=== PATIENT | female | born 1955 | race American Indian/Alaskan Native ===

== ENCOUNTER 2018-05-25 16:07 | Emergency (ER) | payer BC, OTHER ==
[2018-05-25 16:30] VITALS: BP 158/76
[2018-05-25 17:12] LABS: ANION GAP 13.5; CHLORIDE,CL 107 mmol/L (101-111); SODIUM,NA 142 mmol/L (135-145)
[2018-05-25] MEDS ORDERED: Ketorolac 30 MG/ML SDV IM ONE (17:47)
--- NOTE | 2018-05-25 17:54 | EDM.PDOC ---
ED HPI GENERAL MEDICAL PROBLEM - General Chief Complaint: Back Pain or Injury Stated Complaint: LEFT LOWER BACK HAS PAIN [id number] Time Seen by Provider: 05/25/18 17:30 Source of Information: Reports: Patient History Limitations: Reports: No Limitations - History of Present Illness INITIAL COMMENTS - FREE TEXT/NARRATIVE: This 62 yo female patient reports to the ED with a 4 day history of left lower back pain. The patient reports she has been having difficulties ambulating. 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 The patient reports she has been taking ibuprofen with no symptom relief. 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 Left Lower Back Pain Score (Numeric/FACES): 9 - Related Data Allergies Allergy/AdvReac Type Severity Reaction Status Date / Time codeine Allergy Stomach Verified 05/25/18 16:30 Upset Home Meds: Home Meds Levothyroxine 200 mcg PO ACBREAKFAST 05/25/18 [History] Past Medical History Endocrine/Metabolic History: Reports: Hypothyroidism - Past Surgical History GI Surgical History: Reports: Cholecystectomy Female Surgical History: Reports: Hysterectomy Social & Family History - Tobacco Use Smoking Status *Q: Never Smoker Second Hand Smoke Exposure: No - Recreational Drug Use Recreational Drug Use: No ED ROS GENERAL - Review of Systems Review Of Systems: ROS reveals no pertinent complaints other than HPI. ED EXAM,LOWER BACK PAIN/INJURY - Physical Exam Exam: See Below Exam Limited By: No Limitations General Appearance: Alert, WD/WN, Moderate Distress Eye Exam: Bilateral Eye: EOMI, Normal Inspection, PERRL Ears: Normal External Exam, Normal Canal, Hearing Grossly Normal, Normal TMs Nose: Normal Inspection, Normal Mucosa, No Blood Throat/Mouth: Normal Inspection, Normal Lips, Normal Teeth, Normal Gums, Normal Oropharynx, Normal Voice, No Airway Compromise Head: Atraumatic, Normocephalic Neck: Normal Inspection, Supple, Non-Tender, Full Range of Motion Respiratory/Chest: No Respiratory Distress, Lungs Clear, Normal Breath Sounds, No Accessory Muscle Use, Chest Non-Tender Cardiovascular: Normal Peripheral Pulses, Regular Rate, Rhythm, No Edema, No Gallop, No JVD, No Murmur, No Rub GI/Abdominal: Normal Bowel Sounds, Soft, Non-Tender, No Organomegaly, No Distention, No Abnormal Bruit, No Mass (Female) Exam: Deferred Rectal (Female) Exam: Deferred Back Exam: Paraspinal Tenderness (left lower back pain) Extremities: Normal Inspection, Normal Range of Motion, Non-Tender, No Pedal Edema, Normal Capillary Refill Neurological: Alert, Normal Mood/Affect, Normal Dorsiflexion, CN II-XII Intact, Normal Plantar Flexion, Normal Gait, Normal Reflexes, No Motor/Sensory Deficits , Oriented x 3 Psychiatric: Normal Affect, Normal Mood Skin Exam: Warm, Dry, Intact, Normal Color, No Rash Lymphatic: No Adenopathy Course - Vital Signs Last Recorded V/S: Last Vital Signs Temp 37.1 C 05/25/18 16:27 Pulse 103 H 05/25/18 16:27 Resp 18 05/25/18 16:27 BP 158/76 H 05/25/18 16:27 Pulse Ox 97 05/25/18 16:27 - Orders/Labs/Meds Orders: Active Orders 24 hr Category Date Time Status CULTURE URINE [RM] Urgent Lab 05/25/18 16:36 Received Labs: Laboratory Tests 05/25/18 05/25/18 05/25/18 Range/Units 16:36 16:45 16:45 WBC 12.3 H (5.0-10.0) 10^3/uL RBC 4.52 (4.2-5.4) 10^6/uL Hgb 13.3 (12.0-16.0) g/dL Hct 39.9 (37.0-47.0) % MCV 88.3 (80-100) fL MCH 29.4 (27.0-34.0) pg MCHC 33.3 (33.0-35.0) g/dL Plt Count 251 (150-450) 10^3/uL Neut % (Auto) 62.1 (42.2-75.2) % Lymph % (Auto) 24.5 (20.5-50.1) % Becker % (Auto) 10.4 H (2-8) % Eos % (Auto) 2.8 (1.0-3.0) % Baso % (Auto) 0.2 (0.0-1.0) % Sodium 142 (135-145) mmol/L Potassium 3.5 L (3.6-5.0) mmol/L Chloride 107 (101-111) mmol/L Carbon Dioxide 25.0 (21.0-31.0) mmol/L Anion Gap 13.5 BUN 15 (7-18) mg/dL Creatinine 0.8 (0.6-1.3) mg/dL Est Cr Clr Drug Dosing 61.35 mL/min Estimated GFR (MDRD) > 60 BUN/Creatinine Ratio 18.75 Glucose 101 (74-105) mg/dL Calcium 8.8 (8.4-10.2) mg/dl Total Bilirubin 0.7 (0.2-1.0) mg/dL AST 41 (10-42) IU/L ALT 42 (10-60) IU/L Alkaline Phosphatase 88 (42-121) IU/L Total Protein 7.8 (6.7-8.2) g/dl Albumin 3.7 (3.2-5.5) g/dl Globulin 4.1 Albumin/Globulin Ratio 0.90 Urine Color Yellow (YELLOW) Urine Appearance Cloudy (CLEAR) Urine pH 5.5 (5.0-9.0) Ur Specific [place] >= 1.030 (1.005-1.030) Urine Protein 30 H (NEGATIVE) Urine Glucose (UA) Negative (NEGATIVE) Urine Ketones Trace H (NEGATIVE) Urine Occult Blood Small H (NEGATIVE) Urine Nitrite Positive H (NEGATIVE) Urine Bilirubin Negative (NEGATIVE) Urine Urobilinogen 1.0 (0.2-1.0) mg/dL Ur Leukocyte Esterase Small H (NEGATIVE) Urine RBC 5-10 H /HPF Urine WBC >100 H (0-5/HPF) /HPF Ur Epithelial Cells Moderate H /HPF Amorphous Sediment Few (0/HPF) /HPF Urine Bacteria Moderate H (0-FEW/HPF) /HPF Urine Mucus Rare /LPF Urinalysis Comment Meds: Medications Discontinued Medications Generic Name Dose Route Start Last Admin Trade Name Freq PRN Reason Stop Dose Admin Ketorolac Tromethamine 30 mg 05/25/18 17:47 Toradol IM 05/25/18 17:48 ONETIME ONE Departure - Departure Time of Disposition: 17:49 Disposition: Home, Self-Care 01 Condition: Fair Clinical Impression: UTI (urinary tract infection) Qualifiers: Urinary tract infection type: site unspecified Hematuria presence: with hematuria Qualified Code(s): N39.0 - Urinary tract infection, site not specified Low back strain Qualifiers: Encounter type: initial encounter Qualified Code(s): S39.012A - Strain of muscle, fascia and tendon of lower back, initial encounter - Discharge Information *PRESCRIPTION DRUG MONITORING PROGRAM REVIEWED*: Not Applicable *COPY OF PRESCRIPTION DRUG MONITORING REPORT IN PATIENT HONORIO: Not Applicable Instructions: Urinary Tract Infection, Adult, [id number], Back Pain, Adult, [id number] Forms: ED Department Discharge Care Plan Goals: The patient was advised of the examination and lab results during the visit. The patient was given an injection of Toradol while in the ED. The patient was discharged with a script for 1) Toradol (10 mg) #20 to take 1 by mouth every 6 hours, 2) Flexeril (10 mg) #20 to take 1 by mouth at bedtime as needed and 3) Keflex (500 mg) to take 1 by mouth 3 times per day for 7 days. The patient should follow-up with her primary care facility. If the patient has any additional symptoms or concerns, the patient was encouraged to either visit her primary care facility or return to the emergency department. - My Orders Last 24 Hours: My Active Orders 05/25/18 16:36 CULTURE URINE [RM] Urgent - Assessment/Plan Last 24 Hours: My Active Orders 05/25/18 16:36 CULTURE URINE [RM] Urgent
== END 2018-05-25 18:10 | disposition home or self-care (01) ==
LOC: DL.ED 16:07
DX: S39.012A Strain of muscle, fascia and tendon of lower back, initial encounter (principal); N39.0 Urinary tract infection, site not specified; E03.9 Hypothyroidism, unspecified; Z88.5 Allergy status to narcotic agent; X58.XXXA Exposure to other specified factors, initial encounter
CPT/HCPCS: 36415; 80053; 81001; 85025; 87086; 96372; 99283; J1885; 87088; 87186

== ENCOUNTER 2018-05-30 13:26 | Emergency (ER) | payer BC, OTHER ==
[2018-05-30 13:46] VITALS: BP 133/67
[2018-05-30] MEDS ORDERED: Phenazopyridine 95 MG Tab PO ONE (14:14)
[2018-05-30] MEDS ORDERED: Promethazine 25 MG Tab PO ONE (14:14)
[2018-05-30] MEDS ORDERED: Acetaminophen/HYDROcodone 325-10 MG Tab PO ONE (14:15)
[2018-05-30] MEDS ORDERED: Ciprofloxacin 500 MG Tab PO ONE (14:16)
[2018-05-30] MEDS ORDERED: Tolterodine 2 MG Tab PO ONE (15:08)
[2018-05-30 15:28] LABS: ANION GAP 13.7; CHLORIDE,CL 103 mmol/L (101-111); SODIUM,NA 138 mmol/L (135-145)
--- NOTE | 2018-05-30 15:38 | EDM.PDOC ---
Scribed by Milly Reed 05/30/18 1531 for Robi Gonzáles MD ED HPI GENERAL MEDICAL PROBLEM - General Chief Complaint: Genitourinary Problem Stated Complaint: CAME BY AMBULACE Time Seen by Provider: 05/30/18 13:10 Source of Information: Reports: Patient, RN, RN Notes Reviewed History Limitations: Reports: No Limitations - History of Present Illness INITIAL COMMENTS - FREE TEXT/NARRATIVE: Patient presents to ER by [facility] with low abdominal pain and pressure and unable to pass her urine for the past 8 hours. Admits to chills. Denies fever. She was seen here on 05/25/18 and treated for UTI which gew out Klebsiella by culture. 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: Other Medication(s) Lower Abdomen Pain Score (Numeric/FACES): 10 - Related Data Allergies Allergy/AdvReac Type Severity Reaction Status Date / Time codeine Allergy Stomach Verified 05/30/18 13:46 Upset Home Meds: Home Meds Levothyroxine 200 mcg PO ACBREAKFAST 05/25/18 [History] Past Medical History Endocrine/Metabolic History: Reports: Hypothyroidism - Past Surgical History GI Surgical History: Reports: Cholecystectomy Female Surgical History: Reports: Hysterectomy Social & Family History - Family History Family Medical History: Noncontributory - Living Situation & Occupation Living situation: Reports: with Family Occupation: Employed ED ROS GENERAL - Review of Systems Review Of Systems: ROS reveals no pertinent complaints other than HPI. ED EXAM, GI/ABD - Physical Exam Exam: See Below Exam Limited By: No Limitations General Appearance: Alert, WD/WN, No Apparent Distress, Other (Uncomfortable appearing) Nose: Normal Inspection Throat/Mouth: Normal Inspection Head: Atraumatic, Normocephalic Respiratory/Chest: No Respiratory Distress, Lungs Clear, Normal Breath Sounds, No Accessory Muscle Use, Chest Non-Tender Cardiovascular: Regular Rate, Rhythm GI/Abdominal Exam: Normal Bowel Sounds, Soft, Tender (tender suprapubic with palpable bladder distention). No: Guarding, Rigid, Rebound (Female) Exam: Deferred Rectal (Female) Exam: Deferred Back Exam: Normal Inspection. No: CVA Tenderness (L), CVA Tenderness (R) Extremities: Normal Inspection Neurological: Alert, Oriented, No Motor/Sensory Deficits Psychiatric: Normal Mood Skin Exam: Warm, Dry, Intact, Normal Color, No Rash Course - Vital Signs Last Recorded V/S: Last Vital Signs Temp 37.3 C 05/30/18 13:43 Pulse 71 05/30/18 13:43 Resp 18 05/30/18 13:43 BP 133/67 05/30/18 13:43 Pulse Ox 100 05/30/18 13:43 - Orders/Labs/Meds Orders: Active Orders 24 hr Category Date Time Status Peace Catheter Insertion [Insert Urinary Catheter] [OM. Care 05/30/18 14:12 Ordered PC] Stat Urinary Catheter Assessment [RC] ASDIRECTED Care 05/30/18 14:12 Active CULTURE URINE [RM] Stat Lab 05/30/18 13:49 Received Labs: Laboratory Tests 05/30/18 05/30/18 05/30/18 Range/Units 13:49 15:00 15:00 WBC 12.1 H (5.0-10.0) 10^3/uL RBC 4.47 (4.2-5.4) 10^6/uL Hgb 12.8 (12.0-16.0) g/dL Hct 38.8 (37.0-47.0) % MCV 86.8 (80-100) fL MCH 28.6 (27.0-34.0) pg MCHC 33.0 (33.0-35.0) g/dL Plt Count 236 (150-450) 10^3/uL Neut % (Auto) 82.0 H (42.2-75.2) % Lymph % (Auto) 10.1 L (20.5-50.1) % Cook % (Auto) 6.4 (2-8) % Eos % (Auto) 1.2 (1.0-3.0) % Baso % (Auto) 0.3 (0.0-1.0) % Sodium 138 (135-145) mmol/L Potassium 3.7 (3.6-5.0) mmol/L Chloride 103 (101-111) mmol/L Carbon Dioxide 25.0 (21.0-31.0) mmol/L Anion Gap 13.7 BUN 9 (7-18) mg/dL Creatinine 0.8 (0.6-1.3) mg/dL Est Cr Clr Drug Dosing 61.35 mL/min Estimated GFR (MDRD) > 60 Glucose 101 (74-105) mg/dL Calcium 9.2 (8.4-10.2) mg/dl Urine Color Light yellow (YELLOW) Urine Appearance Slightly cloudy (CLEAR) Urine pH 6.5 (5.0-9.0) Ur Specific [place] 1.010 (1.005-1.030) Urine Protein Negative (NEGATIVE) Urine Glucose (UA) Negative (NEGATIVE) Urine Ketones Negative (NEGATIVE) Urine Occult Blood Trace-intact H (NEGATIVE) Urine Nitrite Negative (NEGATIVE) Urine Bilirubin Negative (NEGATIVE) Urine Urobilinogen 1.0 (0.2-1.0) mg/dL Ur Leukocyte Esterase Large H (NEGATIVE) Urine RBC 0-5 /HPF Urine WBC 50-75 H (0-5/HPF) /HPF Ur Epithelial Cells Few /HPF Amorphous Sediment Few (0/HPF) /HPF Urine Bacteria Few (0-FEW/HPF) /HPF Urine Mucus Rare /LPF Meds: Medications Discontinued Medications Generic Name Dose Route Start Last Admin Trade Name Freq PRN Reason Stop Dose Admin Hydrocodone Bitart/Acetaminophen 1 tab 05/30/18 14:15 05/30/18 14:24 [place] 325-10 Mg PO 05/30/18 14:16 1 tab ONETIME ONE Administration Ciprofloxacin 500 mg 05/30/18 14:16 05/30/18 14:24 Ciprofloxacin Hcl PO 05/30/18 14:17 500 mg ONETIME ONE Administration Phenazopyridine HCl 190 mg 05/30/18 14:14 05/30/18 14:24 Urinary Pain Relief PO 05/30/18 14:15 190 mg ONETIME ONE Administration Promethazine HCl 25 mg 05/30/18 14:14 05/30/18 14:24 Phenergan PO 05/30/18 14:15 25 mg ONETIME ONE Administration Tolterodine Tartrate 2 mg 05/30/18 15:08 05/30/18 15:19 Detrol PO 05/30/18 15:09 2 mg ONETIME ONE Administration - Re-Assessments/Exams Free Text/Narrative Re-Assessment/Exam: 05/30/18 15:32 Peace cath. home care instructions provided by RN. Departure - Departure Time of Disposition: 15:32 Disposition: Home, Self-Care 01 Condition: Good Clinical Impression: Acute urinary retention, UTI, Urinary tract infectious disease - Discharge Information *PRESCRIPTION DRUG MONITORING PROGRAM REVIEWED*: Not Applicable *COPY OF PRESCRIPTION DRUG MONITORING REPORT IN PATIENT HONORIO: Not Applicable Instructions: Indwelling Urinary Catheter Care, Adult, Acute Urinary Retention , Female, Urinary Tract Infection, Adult, [id number] Forms: ED Department Discharge Additional Instructions: Rx: Pyridium 200mg (turns urine orange) Rx: Cipro 500mg Follow up in clinic in 2 days for catheter removal and urine recheck. Once the catheter has been removed try to urinate every 2 hours for the rest of the day. Return to ER if you become unable to pass urine again. - My Orders Last 24 Hours: My Active Orders 05/30/18 13:49 CULTURE URINE [RM] Stat 05/30/18 14:12 Peace Catheter Insertion [Insert Urinary Catheter] [OM.PC] Stat Urinary Catheter Assessment [RC] ASDIRECTED - Assessment/Plan Last 24 Hours: My Active Orders 05/30/18 13:49 CULTURE URINE [RM] Stat 05/30/18 14:12 Peace Catheter Insertion [Insert Urinary Catheter] [OM.PC] Stat Urinary Catheter Assessment [RC] ASDIRECTED I have read and agree with the documentation that has been completed regarding this visit. By signing this record, I attest that the documentation was completed in my physical presence and is an accurate record of the encounter.
== END 2018-05-30 16:15 | disposition home or self-care (01) ==
LOC: DL.ED 13:26
DX: N39.0 Urinary tract infection, site not specified (principal); Z88.5 Allergy status to narcotic agent
CPT/HCPCS: 36415; 51702; 80048; 81001; 85025; 87086; 99284; A9270

== ENCOUNTER 2018-06-02 20:51 | Emergency (ER) | payer BC, OTHER ==
[2018-06-02 21:00] VITALS: BP 165/108
--- NOTE | 2018-06-02 21:47 | EDM.PDOC ---
ED HPI GENERAL MEDICAL PROBLEM - General Chief Complaint: Genitourinary Problem Stated Complaint: CAN'T USE BATHROOM Time Seen by Provider: 06/02/18 21:26 Source of Information: Reports: Patient, RN, RN Notes Reviewed History Limitations: Reports: No Limitations - History of Present Illness INITIAL COMMENTS - FREE TEXT/NARRATIVE: Pt to ER with c/o urinary retention. She states she had a catheter placed for a UTI. She was to have the catheter removed today, which she did have removed this afternoon. Patient states she has voided x1 with BM today, but feels pressure and unable to void again. Patient is in moderated distress with pain in the lower pelvic area, and feeling of needing to void. Onset: Today, Sudden Duration: Getting Worse Location: Reports: Abdomen Quality: Reports: Pressure Severity: Moderate Improves with: Reports: None Worsens with: Reports: None Bladder Pain Score (Numeric/FACES): 10 - Related Data Allergies Allergy/AdvReac Type Severity Reaction Status Date / Time codeine Allergy Stomach Verified 06/02/18 21:00 Upset Home Meds: Home Meds Levothyroxine 200 mcg PO ACBREAKFAST 05/25/18 [History] Ciprofloxacin [Ciprofloxacin HCl] 500 mg PO BID 06/02/18 [History] Past Medical History - Past Health History Medical/Surgical History: Denies Medical/Surgical History Genitourinary History: Reports: Other (See Below) Other Genitourinary History: current UTI Endocrine/Metabolic History: Reports: Hypothyroidism - Past Surgical History GI Surgical History: Reports: Cholecystectomy Female Surgical History: Reports: Hysterectomy Social & Family History - Family History Family Medical History: Noncontributory - Tobacco Use Smoking Status *Q: Never Smoker Second Hand Smoke Exposure: No - Caffeine Use Caffeine Use: Reports: Coffee - Recreational Drug Use Recreational Drug Use: No - Living Situation & Occupation Living situation: Reports: with Family Occupation: Employed ED ROS GENERAL - Review of Systems Review Of Systems: ROS reveals no pertinent complaints other than HPI. ED EXAM, RENAL/ - Physical Exam Exam: See Below Exam Limited By: No Limitations General Appearance: Alert, Moderate Distress Eye Exam: Bilateral Eye: EOMI, Normal Inspection Ears: Normal External Exam, Hearing Grossly Normal Nose: Normal Inspection Throat/Mouth: Normal Inspection, Normal Voice, No Airway Compromise Head: Atraumatic, Normocephalic Neck: Normal Inspection, Supple, Non-Tender, Full Range of Motion Respiratory/Chest: No Respiratory Distress, Lungs Clear, Normal Breath Sounds, No Accessory Muscle Use, Chest Non-Tender Cardiovascular: Normal Peripheral Pulses, Regular Rate, Rhythm, No Edema, No Gallop, No JVD, No Murmur, No Rub GI/Abdominal: Normal Bowel Sounds, Soft, Tender (Female) Exam: Deferred Rectal (Female) Exam: Deferred Back Exam: Normal Inspection, Full Range of Motion Extremities: Normal Inspection, Normal Range of Motion, Non-Tender, Normal Capillary Refill, No Pedal Edema Neurological: Alert, Oriented, CN II-XII Intact, Normal Cognition, Normal Gait, Normal Reflexes, No Motor/Sensory Deficits Psychiatric: Anxious, Tearful Skin Exam: Warm, Dry, Intact, Normal Color, No Rash Lymphatic: No Adenopathy Course - Vital Signs Last Recorded V/S: Last Vital Signs Temp 99.1 F 06/02/18 20:57 Pulse 103 H 06/02/18 20:57 Resp 20 06/02/18 20:57 BP 165/108 H 06/02/18 20:57 Pulse Ox 98 06/02/18 20:57 - Orders/Labs/Meds Labs: Laboratory Tests 06/02/18 Range/Units 21:40 Urine Color Yellow (YELLOW) Urine Appearance Clear (CLEAR) Urine pH 5.5 (5.0-9.0) Ur Specific [place] 1.010 (1.005-1.030) Urine Protein Negative (NEGATIVE) Urine Glucose (UA) Negative (NEGATIVE) Urine Ketones Negative (NEGATIVE) Urine Occult Blood Small H (NEGATIVE) Urine Nitrite Negative (NEGATIVE) Urine Bilirubin Negative (NEGATIVE) Urine Urobilinogen 0.2 (0.2-1.0) mg/dL Ur Leukocyte Esterase Small H (NEGATIVE) Urine RBC 0-5 /HPF Urine WBC 5-10 H (0-5/HPF) /HPF Ur Epithelial Cells Few /HPF Urine Bacteria Few (0-FEW/HPF) /HPF - Re-Assessments/Exams Free Text/Narrative Re-Assessment/Exam: 06/07/18 20:20 Bladder scanner showed approximately 400 residual in the bladder. Patient feels relief with catheter placement and draining of bladder. Departure - Departure Time of Disposition: 21:47 Disposition: Home, Self-Care 01 Condition: Fair Clinical Impression: UTI, Urinary tract infectious disease, Urinary retention - Discharge Information *PRESCRIPTION DRUG MONITORING PROGRAM REVIEWED*: No *COPY OF PRESCRIPTION DRUG MONITORING REPORT IN PATIENT HONORIO: No Instructions: Urinary Tract Infection, Adult, [id number], Indwelling Urinary Catheter Insertion, Care After Referrals: PCP,None [Primary Care Provider] - Forms: ED Department Discharge Additional Instructions: Continue antibiotics as ordered Follow up with your primary care facility tomorrow
== END 2018-06-02 22:08 | disposition home or self-care (01) ==
LOC: DL.ED 20:51
DX: N39.0 Urinary tract infection, site not specified (principal); E03.9 Hypothyroidism, unspecified; Z88.5 Allergy status to narcotic agent
CPT/HCPCS: 51702; 51798; 81001; 87086; 99283

== ENCOUNTER 2019-01-18 20:49 | Emergency (ER) | payer BC, OTHER ==
[2019-01-18 21:50] VITALS: BP 141/65; PULSE 88
[2019-01-18 22:32] LABS: ANION GAP 11.6; CHLORIDE,CL 106 mmol/L (101-111); SODIUM,NA 140 mmol/L (135-145)
[2019-01-18] MEDS ORDERED: Sodium Chloride 0.9% 1,000 ML IV ONE (23:56)
[2019-01-18] MEDS ORDERED: Iopamidol 612 MG/ML 75 ML Bottle IVPUSH ONE (23:56)
[2019-01-18] MEDS ORDERED: LORazepam 2 MG/ML Syringe IVPUSH ONE (23:59)
--- NOTE | 2019-01-19 01:19 | EDM.PDOC ---
ED HPI GENERAL MEDICAL PROBLEM - General Chief Complaint: Genitourinary Problem Stated Complaint: BLEEDING FROM CATHETER INSERTION Time Seen by Provider: 01/18/19 22:00 Source of Information: Reports: Patient, RN History Limitations: Reports: No Limitations - History of Present Illness INITIAL COMMENTS - FREE TEXT/NARRATIVE: ED with c/o "bleeding around catheter, Reports noting blood in toilet, felt like was "peeing when sat down on toilet, states at times with straining she will have some urine leak around catheter but when stood up noted blood in toilet, wiped and had small clot/tissue like that fell out. Small amount of bleeding from vaginal area since. Prior hx total hsyterectomy. 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 On oral medication, Repeat MRI and PET scans in 1-2 months to recheck. Primary oncology in [place], Has been seen in . PCP Dr Soares and Dr Gatica. Denies URI sx. No fever or chills. Parks last changed 12/31, changes every 6 weeks. Bag changed last week. Denies abdominal discomfort. 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: Musculoskeletal History: Reports: Fracture Endocrine/Metabolic History: Reports: Hypothyroidism Oncologic (Cancer) History: Reports: Bladder - Past Surgical History HEENT Surgical History: Reports: Tonsillectomy GI Surgical History: Reports: Cholecystectomy Female Surgical History: Reports: Hysterectomy Social & Family History - Family History Family Medical History: Noncontributory - Tobacco Use Smoking Status *Q: Never Smoker Second Hand Smoke Exposure: No - Caffeine Use Caffeine Use: Reports: Coffee, Tea - Recreational Drug Use Recreational Drug Use: No - Living Situation & Occupation Living situation: Reports: with Family Occupation: Employed ED ROS GENERAL - Review of Systems Review Of Systems: ROS reveals no pertinent complaints other than HPI. ED EXAM, RENAL/ - Physical Exam Exam: See Below Exam Limited By: No Limitations General Appearance: Alert, No Apparent Distress, Anxious Eye Exam: Bilateral Eye: EOMI Ears: Normal External Exam, Hearing Grossly Normal Nose: Normal Inspection Throat/Mouth: Normal Inspection, Normal Lips, Normal Voice Head: Atraumatic, Normocephalic Neck: Normal Inspection, Full Range of Motion Respiratory/Chest: No Respiratory Distress, Lungs Clear, Normal Breath Sounds Cardiovascular: Normal Peripheral Pulses, Regular Rate, Rhythm GI/Abdominal: Normal Bowel Sounds, Soft. No: Distended, Guarding, Tender (Female) Exam: Vaginal Bleeding Extremities: Normal Inspection Neurological: Alert, Oriented, Normal Cognition Psychiatric: Normal Affect, Flat Affect Skin Exam: Warm, Dry, Intact, Normal Color Course - Vital Signs Last Recorded V/S: Last Vital Signs Temp 97.3 F 01/18/19 21:49 Pulse 88 01/18/19 21:49 Resp 19 01/18/19 21:49 BP 141/65 H 01/18/19 21:49 Pulse Ox 100 01/18/19 21:49 - Orders/Labs/Meds Orders: Active Orders 24 hr Category Date Time Status CULTURE URINE [RM] Urgent Lab 01/19/19 00:58 Received Labs: Laboratory Tests 01/18/19 01/18/19 01/18/19 Range/Units 22:08 22:08 22:08 WBC 11.9 H (5.0-10.0) 10^3/uL RBC 4.41 (4.2-5.4) 10^6/uL Hgb 12.1 (12.0-16.0) g/dL Hct 37.3 (37.0-47.0) % MCV 84.6 (80-100) fL MCH 27.4 (27.0-34.0) pg MCHC 32.4 L (33.0-35.0) g/dL Plt Count 255 (150-450) 10^3/uL Neut % (Auto) 63.0 (42.2-75.2) % Lymph % (Auto) 22.5 (20.5-50.1) % [place] % (Auto) 9.9 H (2-8) % Eos % (Auto) 4.3 H (1.0-3.0) % Baso % (Auto) 0.3 (0.0-1.0) % PT 9.9 (9.0-12.0) SEC INR 1.0 (0.9-1.2) Sodium 140 (135-145) mmol/L Potassium 3.6 (3.6-5.0) mmol/L Chloride 106 (101-111) mmol/L Carbon Dioxide 26.0 (21.0-31.0) mmol/L Anion Gap 11.6 BUN 18 (7-18) mg/dL Creatinine 0.7 (0.6-1.3) mg/dL Est Cr Clr Drug Dosing 69.19 mL/min Estimated GFR (MDRD) > 60 BUN/Creatinine Ratio 25.71 Glucose 100 (74-105) mg/dL Calcium 8.8 (8.4-10.2) mg/dl Total Bilirubin 0.6 (0.2-1.0) mg/dL AST 29 (10-42) IU/L ALT 28 (10-60) IU/L Alkaline Phosphatase 83 (42-121) IU/L Total Protein 7.4 (6.7-8.2) g/dl Albumin 3.5 (3.2-5.5) g/dl Globulin 3.9 Albumin/Globulin Ratio 0.90 Amylase 54 (28-100) U/L Urine Color (YELLOW) Urine Appearance (CLEAR) Urine pH (5.0-9.0) Ur Specific [place] (1.005-1.030) Urine Protein (NEGATIVE) Urine Glucose (UA) (NEGATIVE) Urine Ketones (NEGATIVE) Urine Occult Blood (NEGATIVE) Urine Nitrite (NEGATIVE) Urine Bilirubin (NEGATIVE) Urine Urobilinogen (0.2-1.0) mg/dL Ur Leukocyte Esterase (NEGATIVE) Urine RBC /HPF Urine WBC (0-5/HPF) /HPF Ur Epithelial Cells (NOT SEEN) /HPF Uric Acid Crystals (NOT SEEN) Amorphous Sediment (NOT SEEN) /HPF Urine Bacteria (0-FEW/HPF) /HPF Urine Mucus (NOT SEEN) /LPF 01/19/19 Range/Units 00:58 WBC (5.0-10.0) 10^3/uL RBC (4.2-5.4) 10^6/uL Hgb (12.0-16.0) g/dL Hct (37.0-47.0) % MCV (80-100) fL MCH (27.0-34.0) pg MCHC (33.0-35.0) g/dL Plt Count (150-450) 10^3/uL Neut % (Auto) (42.2-75.2) % Lymph % (Auto) (20.5-50.1) % [place] % (Auto) (2-8) % Eos % (Auto) (1.0-3.0) % Baso % (Auto) (0.0-1.0) % PT (9.0-12.0) SEC INR (0.9-1.2) Sodium (135-145) mmol/L Potassium (3.6-5.0) mmol/L Chloride (101-111) mmol/L Carbon Dioxide (21.0-31.0) mmol/L Anion Gap BUN (7-18) mg/dL Creatinine (0.6-1.3) mg/dL Est Cr Clr Drug Dosing mL/min Estimated GFR (MDRD) BUN/Creatinine Ratio Glucose (74-105) mg/dL Calcium (8.4-10.2) mg/dl Total Bilirubin (0.2-1.0) mg/dL AST (10-42) IU/L ALT (10-60) IU/L Alkaline Phosphatase (42-121) IU/L Total Protein (6.7-8.2) g/dl Albumin (3.2-5.5) g/dl Globulin Albumin/Globulin Ratio Amylase (28-100) U/L Urine Color Yellow (YELLOW) Urine Appearance Turbid (CLEAR) Urine pH 7.0 (5.0-9.0) Ur Specific [place] 1.020 (1.005-1.030) Urine Protein 30 H (NEGATIVE) Urine Glucose (UA) Negative (NEGATIVE) Urine Ketones Negative (NEGATIVE) Urine Occult Blood Moderate H (NEGATIVE) Urine Nitrite Positive H (NEGATIVE) Urine Bilirubin Negative (NEGATIVE) Urine Urobilinogen 1.0 (0.2-1.0) mg/dL Ur Leukocyte Esterase Small H (NEGATIVE) Urine RBC 20-30 H /HPF Urine WBC 40-50 H (0-5/HPF) /HPF Ur Epithelial Cells Few (NOT SEEN) /HPF Uric Acid Crystals Few (NOT SEEN) Amorphous Sediment Many H (NOT SEEN) /HPF Urine Bacteria Many H (0-FEW/HPF) /HPF Urine Mucus Moderate H (NOT SEEN) /LPF Meds: Medications Discontinued Medications Generic Name Dose Route Start Last Admin Trade Name Genet PRN Reason Stop Dose Admin Sodium Chloride 1,000 mls @ 999 mls/hr 01/18/19 23:56 01/19/19 00:49 Normal Saline IV 01/19/19 00:56 999 mls/hr .BOLUS ONE Administration Iopamidol 75 ml 01/18/19 23:56 01/19/19 00:28 Isovue-300 (61%) IVPUSH 01/18/19 23:57 75 ml ONETIME ONE Administration Lorazepam 1 mg 01/18/19 23:59 01/19/19 00:57 Ativan IVPUSH 01/19/19 00:00 Not Given ONETIME ONE - Radiology Interpretation Free Text/Narrative:: [facility] Final Radiology Report Call: [phone] assistance Online chat: [email or web address] Name: LEON LOBO Age: 63Years F Date: 01/19/2019 SSN: -- : [id number] Study: CT ABDOMEN/PELVIS W Requesting Physician: JEIMY CONRAD Images: [id number] Addl Studies: Provided Clinical History: Contrast: With Contrast Medium: Iso 300 Contrast Amount: 75 mL Contrast Method: L forearm 18g Page 1 of 2 PROCEDURE INFORMATION: Exam: CT Abdomen and Pelvis With Contrast Exam date and time: 01/19/2019 12:25 AM Clinical history: 63 years old, female; Other: Vag bleeding, sorcoma tumors abdomen pelvis, indwelling parks due to tumor pressure on bladder; Patient HX: Cholecystectomy, appendectomy, hysterectomy TECHNIQUE: Imaging protocol: Computed tomography of the abdomen and pelvis with intravenous contrast. Radiation optimization: All CT scans at this facility use at least one of these dose optimization techniques: automated exposure control; mA and/or kV adjustment per patient size (includes targeted exams where dose is matched to clinical indication); or iterative reconstruction. Contrast material: ISO 300; Contrast volume: 75 ml; Contrast route: L FOREARM 18G; COMPARISON: CT Abdomen Pelvis w Cont 06/08/2018 2:04 PM FINDINGS: Lungs: Several pulmonary nodules evident in the lung bases measuring up to 17 mm. Liver: No suspicious lesions. Gallbladder and bile ducts: No acute or concerning findings. Pancreas: Unremarkable. No ductal dilation. Spleen: No suspicious lesions. Adrenals: No suspicious nodule. Kidneys and ureters: Mild left hydronephrosis. Right kidney is a 17 mm nonobstructing calcification, unchanged. Stomach and bowel: Colonic diverticulosis. Appendix: No evidence of appendicitis. Intraperitoneal space: See reproductive. LEON LOBO | Final Radiology Report CONFIDENTIALITY STATEMENT This report is intended only for use by the referring physician, and only in accordance with law. If you received this in error, call [phone]. Page 2 of 2 Vasculature: Unremarkable. No acute findings Lymph nodes: Unremarkable. Bladder: Parks catheter decompresses the displaced urinary bladder. Reproductive: Pelvic mass measures 12.7 x 9.5 cm transversely as compared to 11.4 x 8.0 cm. Bones/joints: Unremarkable. No acute fracture. Soft tissues: Small fat-containing umbilical hernia. IMPRESSION: 1. Pelvic mass has increased in size now measuring 12.7 x 9.5 cm as compared to 11.4 x 8.0 cm. 2. Mild left-sided hydronephrosis secondary to pelvic mass, increased slightly. 3. Several pulmonary nodules. Only one of these was included in the field-of- view on the comparison study in that nodule has increased in size now measuring 12 mm as compared to 9 mm. 4. Small fat-containing umbilical hernia. 5. Colonic diverticulosis. Thank you for allowing us to participate in the care of your patient. Dictated and Authenticated by: Celestine Reyes MD 01/19/2019 1:25 AM Central Time ([place] & [place]) - Re-Assessments/Exams Free Text/Narrative Re-Assessment/Exam: 01/19/19 04:[address] Issac Torres. No urgent need for transfer. Parks functional, draining yellow urine, Vaginal bleeding appears to have resolved. Patient up to bathroom and nothing further noted . Patient informed of CT results including increase in size of abdominal mass. Recommend follow up with oncologist in [place] in am. Departure - Departure Time of Disposition: 02:22 Disposition: Home, Self-Care 01 Condition: Good Clinical Impression: Abnormal vaginal bleeding, Primary sarcoma of intra-abdominal site, Chronic indwelling Parks catheter - Discharge Information *PRESCRIPTION DRUG MONITORING PROGRAM REVIEWED*: No *COPY OF PRESCRIPTION DRUG MONITORING REPORT IN PATIENT HONORIO: No Instructions: Indwelling Urinary Catheter Care, Adult Forms: ED Department Discharge Additional Instructions: follow up with oncologist in am, If unable to contact [place], Follow up with Dr. Soares or Dr Gatica Urgent follow up if symptoms recur or experiencing increase abdominal pain monitor urine output to make sure catheter continues to drain well urgen follow up if presence gross blood in catheter, fever or chills. - My Orders Last 24 Hours: My Active Orders 01/19/19 00:58 CULTURE URINE [RM] Urgent - Assessment/Plan Last 24 Hours: My Active Orders 01/19/19 00:58 CULTURE URINE [RM] Urgent
== END 2019-01-19 02:35 | disposition home or self-care (01) ==
LOC: DL.ED 20:49
DX: T83.83XA Hemorrhage due to genitourinary prosthetic devices, implants and grafts, initial encounter (principal); N93.9 Abnormal uterine and vaginal bleeding, unspecified; C76.2 Malignant neoplasm of abdomen; E03.9 Hypothyroidism, unspecified; Z90.49 Acquired absence of other specified parts of digestive tract; Z90.710 Acquired absence of both cervix and uterus; Z88.5 Allergy status to narcotic agent; Z79.899 Other long term (current) drug therapy
CPT/HCPCS: 36415; 74177; 80053; 81001; 82150; 85025; 85610; 87086; 96360; 96361; 99284-25; J7030; Q9967

== ENCOUNTER 2019-01-27 03:43 | Emergency (ER) | payer BC, OTHER ==
[2019-01-27 03:18] VITALS: BP 142/65; PULSE 86
--- NOTE | 2019-01-27 03:46 | EDM.PDOC ---
ED HPI GENERAL MEDICAL PROBLEM - General Stated Complaint: AMBULANCE Time Seen by Provider: 01/27/19 03:40 Source of Information: Reports: Patient History Limitations: Reports: No Limitations - History of Present Illness INITIAL COMMENTS - FREE TEXT/NARRATIVE: This 63 yo female patient reports to the ED due to having no urine output since 2129 last night and the sensation of a full bladder. Onset Date: 01/26/19 Duration: Constant, Getting Worse Location: Reports: Abdomen Quality: Reports: Other Severity: Moderate Improves with: Reports: None Worsens with: Reports: None Context: Reports: Other Associated Symptoms: Reports: No Other Symptoms Abdominal Pain Score (Numeric/FACES): 10 - Related Data Allergies Allergy/AdvReac Type Severity Reaction Status Date / Time codeine AdvReac Stomach Verified 01/27/19 03:18 Upset Home Meds: Home Meds Levothyroxine 150 mcg PO ACBREAKFAST 05/25/18 [History] Anastrozole [Arimidex] 1 mg PO DAILY 11/15/18 [History] Past Medical History - Past Health History Medical/Surgical History: Denies Medical/Surgical History Genitourinary History: Reports: Retention, Urinary Other Genitourinary History: 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 catheter 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: Reports: 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 Psychiatric History: Reports: Anxiety Endocrine/Metabolic History: Reports: Hypothyroidism Oncologic (Cancer) History: Reports: Bladder - Past Surgical History HEENT Surgical History: Reports: Tonsillectomy GI Surgical History: Reports: Cholecystectomy Female Surgical History: Reports: Hysterectomy Social & Family History - Family History Family Medical History: Noncontributory - Tobacco Use Smoking Status *Q: Unknown Ever Smoked - Caffeine Use Caffeine Use: Reports: Coffee - Recreational Drug Use Recreational Drug Use: No - Living Situation & Occupation Living situation: Reports: with Family Occupation: Employed ED ROS GENERAL - Review of Systems Review Of Systems: ROS reveals no pertinent complaints other than HPI. ED EXAM, RENAL/ - Physical Exam Exam: See Below Exam Limited By: No Limitations General Appearance: Alert, WD/WN, Mild Distress Eye Exam: Bilateral Eye: EOMI, Normal Inspection, PERRL Ears: Normal External Exam, Normal Canal, Hearing Grossly Normal, Normal TMs Nose: Normal Inspection, Normal Mucosa, No Blood Throat/Mouth: Normal Inspection, Normal Lips, Normal Teeth, Normal Gums, Normal Oropharynx, Normal Voice, No Airway Compromise Head: Atraumatic, Normocephalic Neck: Normal Inspection, Supple, Non-Tender, Full Range of Motion Respiratory/Chest: No Respiratory Distress, Lungs Clear, Normal Breath Sounds, No Accessory Muscle Use, Chest Non-Tender Cardiovascular: Normal Peripheral Pulses, Regular Rate, Rhythm, No Edema, No Gallop, No JVD, No Murmur, No Rub GI/Abdominal: Tender (lower abdominal tenderness with palpation) (Female) Exam: Deferred Rectal (Female) Exam: Deferred Back Exam: Normal Inspection Extremities: Normal Inspection, Normal Range of Motion, Non-Tender, Normal Capillary Refill, No Pedal Edema Neurological: Alert, Oriented, CN II-XII Intact, Normal Cognition, Normal Gait, Normal Reflexes, No Motor/Sensory Deficits Psychiatric: Normal Affect, Normal Mood Skin Exam: Warm, Dry, Intact, Normal Color, No Rash Lymphatic: No Adenopathy Course - Vital Signs Last Recorded V/S: Last Vital Signs Temp 36.6 C 01/27/19 03:12 Pulse 86 01/27/19 03:12 Resp 20 01/27/19 03:12 BP 142/65 H 01/27/19 03:12 Pulse Ox 100 01/27/19 03:12 - Orders/Labs/Meds Orders: Active Orders 24 hr Category Date Time Status Bladder Scan [RC] ASDIRECTED Care 01/27/19 02:43 Inactive Urinary Catheter Assessment [RC] ASDIRECTED Care 01/27/19 03:08 Ordered Urinary Catheter Insertion [Insert Urinary Catheter] [ Care 01/27/19 03:15 Ordered OM.PC] Q24H Labs: Laboratory Tests 01/27/19 Range/Units 03:04 Urine Color Yellow (YELLOW) Urine Appearance Cloudy (CLEAR) Urine pH 6.5 (5.0-9.0) Ur Specific [place] 1.020 (1.005-1.030) Urine Protein Negative (NEGATIVE) Urine Glucose (UA) Negative (NEGATIVE) Urine Ketones Negative (NEGATIVE) Urine Occult Blood Large H (NEGATIVE) Urine Nitrite Negative (NEGATIVE) Urine Bilirubin Negative (NEGATIVE) Urine Urobilinogen 0.2 (0.2-1.0) mg/dL Ur Leukocyte Esterase Moderate H (NEGATIVE) Urine RBC >100 H /HPF Urine WBC >100 H (0-5/HPF) /HPF Ur Epithelial Cells Few (NOT SEEN) /HPF Amorphous Sediment Few (NOT SEEN) /HPF Urine Bacteria Many H (0-FEW/HPF) /HPF Departure - Departure Time of Disposition: 03:43 Disposition: Home, Self-Care 01 Condition: Fair Clinical Impression: Urinary catheter dysfunction Qualifiers: Encounter type: initial encounter Qualified Code(s): T83.018A - Breakdown ( mechanical) of other urinary catheter, initial encounter - Discharge Information *PRESCRIPTION DRUG MONITORING PROGRAM REVIEWED*: Not Applicable *COPY OF PRESCRIPTION DRUG MONITORING REPORT IN PATIENT HONORIO: Not Applicable Forms: ED Department Discharge Care Plan Goals: The patient was advised of the examination results during the visit. The patient 's urinary catheter was replaced by nursing staff during the visit. The patient was encouraged to increase her oral fluid intake. If the patient has any additional symptoms or concerns, the patient should either return to the emergency department or visit her primary care facility. - My Orders Last 24 Hours: My Active Orders 01/27/19 02:43 Bladder Scan [RC] ASDIRECTED 01/27/19 03:08 Urinary Catheter Assessment [RC] ASDIRECTED 01/27/19 03:15 Urinary Catheter Insertion [Insert Urinary Catheter] [OM.PC] Q24H - Assessment/Plan Last 24 Hours: My Active Orders 01/27/19 02:43 Bladder Scan [RC] ASDIRECTED 01/27/19 03:08 Urinary Catheter Assessment [RC] ASDIRECTED 01/27/19 03:15 Urinary Catheter Insertion [Insert Urinary Catheter] [OM.PC] Q24H
== END 2019-01-27 04:10 | disposition home or self-care (01) ==
LOC: DL.ED 03:43
DX: T83.018A Breakdown (mechanical) of other urinary catheter, initial encounter (principal); E03.9 Hypothyroidism, unspecified; Z98.890 Other specified postprocedural states; Z90.49 Acquired absence of other specified parts of digestive tract; Z90.710 Acquired absence of both cervix and uterus; Z79.899 Other long term (current) drug therapy; Z88.5 Allergy status to narcotic agent
CPT/HCPCS: 51702; 81001; 99284

== ENCOUNTER 2019-02-16 05:35 | Emergency (ER) | payer BC, OTHER ==
[2019-02-16 05:44] VITALS: BP 152/65; PULSE 100
--- NOTE | 2019-02-16 06:26 | EDM.PDOC ---
ED HPI GENERAL MEDICAL PROBLEM - General Chief Complaint: Genitourinary Problem Stated Complaint: CATHETER PLUGGED Time Seen by Provider: 02/16/19 06:00 Source of Information: Reports: Patient, RN, RN Notes Reviewed History Limitations: Reports: No Limitations - History of Present Illness INITIAL COMMENTS - FREE TEXT/NARRATIVE: 63 year female who came in with complaints of abdominal discomfort from her parks cather being plugged. Patient reports this happens intermittently. Patient states lower abdominal pain began one day ago and she could not tolerate it this morning. She states her parks has been changed in the ER periodically. Denies any fever/chills at home. She is also complaining of constipation. She has not have a bowel movement in two days and reports she normally goes every day. She states she has drinking alot of water, eating fruits and vegetables with no success. She reports straining with bowel movement. Lower Abdomen Pain Score (Numeric/FACES): 9 - Related Data Allergies Allergy/AdvReac Type Severity Reaction Status Date / Time codeine AdvReac Stomach Verified 02/16/19 05:45 Upset Home Meds: Home Meds Levothyroxine 150 mcg PO ACBREAKFAST 05/25/18 [History] Anastrozole [Arimidex] 1 mg PO DAILY 11/15/18 [History] Past Medical History - Past Health History Medical/Surgical History: Denies Medical/Surgical History Cardiovascular History: Reports: None Respiratory History: Reports: None Gastrointestinal History: Reports: Cholelithiasis Genitourinary History: Reports: Retention, Urinary Other Genitourinary History: chronic catheter patient 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: Reports: Fracture Neurological History: Reports: None Psychiatric History: Reports: Anxiety Endocrine/Metabolic History: Reports: Hypothyroidism Hematologic History: Reports: None Immunologic History: Reports: None Oncologic (Cancer) History: Reports: Bladder Dermatologic History: Reports: None - Infectious Disease History Infectious Disease History: Reports: Chicken Pox, Measles, Mumps - Past Surgical History Head Surgeries/Procedures: Reports: None HEENT Surgical History: Reports: Tonsillectomy GI Surgical History: Reports: Cholecystectomy Female Surgical History: Reports: Hysterectomy Social & Family History - Family History Family Medical History: Noncontributory - Tobacco Use Smoking Status *Q: Former Smoker Years of Tobacco use: 4 Used Tobacco, but Quit: Yes Month/Year Tobacco Last Used: 1992 Second Hand Smoke Exposure: No - Caffeine Use Caffeine Use: Reports: Coffee, Soda - Recreational Drug Use Recreational Drug Use: No - Living Situation & Occupation Living situation: Reports: with Family Occupation: Employed ED ROS GENERAL - Review of Systems Review Of Systems: See Below Constitutional: Reports: No Symptoms Cardiovascular: Reports: No Symptoms Endocrine: Reports: No Symptoms GI/Abdominal: Reports: Abdominal Pain, Bloody Stool (none), Constipation : Reports: Urinary Retention ED EXAM, RENAL/ - Physical Exam Exam: See Below Exam Limited By: No Limitations General Appearance: Alert, Mild Distress Respiratory/Chest: No Respiratory Distress, Lungs Clear, Normal Breath Sounds, No Accessory Muscle Use, Chest Non-Tender Cardiovascular: Normal Peripheral Pulses, Regular Rate, Rhythm, No Edema, No Gallop, No JVD, No Murmur, No Rub GI/Abdominal: Normal Bowel Sounds, Soft, Non-Tender (Female) Exam: Deferred Rectal (Female) Exam: Deferred Neurological: Alert, Oriented, Normal Cognition, No Motor/Sensory Deficits Psychiatric: Normal Affect, Normal Mood Skin Exam: Warm, Intact Course - Vital Signs Last Recorded V/S: Last Vital Signs Temp 97.5 F 02/16/19 05:39 Pulse 100 02/16/19 05:39 Resp 20 02/16/19 05:39 BP 152/65 H 02/16/19 05:39 Pulse Ox 100 02/16/19 05:39 - Orders/Labs/Meds Orders: Active Orders 24 hr Category Date Time Status CULTURE URINE [RM] Urgent Lab 02/16/19 05:45 Received Labs: Laboratory Tests 02/16/19 Range/Units 05:45 Urine Color Light yellow (YELLOW) Urine Appearance Clear (CLEAR) Urine pH 7.0 (5.0-9.0) Ur Specific [place] 1.010 (1.005-1.030) Urine Protein Negative (NEGATIVE) Urine Glucose (UA) Negative (NEGATIVE) Urine Ketones Negative (NEGATIVE) Urine Occult Blood Small H (NEGATIVE) Urine Nitrite Negative (NEGATIVE) Urine Bilirubin Negative (NEGATIVE) Urine Urobilinogen 0.2 (0.2-1.0) mg/dL Ur Leukocyte Esterase Small H (NEGATIVE) Urine RBC 0-5 /HPF Urine WBC 5-10 H (0-5/HPF) /HPF Ur Epithelial Cells Few (NOT SEEN) /HPF Urine Bacteria Few (0-FEW/HPF) /HPF - Radiology Interpretation Free Text/Narrative:: FINDINGS: Gastrointestinal tract: There is no significant distention of the small bowel or large bowel on this current examination. Moderate fecal burden within the rectum. Intraperitoneal space: Normal. No free air. Organs: 2.4 cm calcification within the right renal fossa. Bones/joints: There is multilevel degenerative disc disease. IMPRESSION: 1. 2.4 cm calcification within the right renal fossa. 2. Moderate fecal burden within the rectum. Thank you for allowing us to participate in the care of your patient. Dictated and Authenticated by: Gregory Russo MD Departure - Departure Time of Disposition: 07:29 Disposition: Home, Self-Care 01 Condition: Good Clinical Impression: Urinary retention, Chronic indwelling Parks catheter Urinary catheter dysfunction Qualifiers: Encounter type: initial encounter Qualified Code(s): T83.018A - Breakdown ( mechanical) of other urinary catheter, initial encounter Constipation Qualifiers: Constipation type: unspecified constipation type Qualified Code(s): K59.00 - Constipation, unspecified - Discharge Information *PRESCRIPTION DRUG MONITORING PROGRAM REVIEWED*: Not Applicable *COPY OF PRESCRIPTION DRUG MONITORING REPORT IN PATIENT HONORIO: Not Applicable Instructions: Constipation, Adult, [id number], Constipation, Adult, Acute Urinary Retention, Female, [id number] Forms: ED Department Discharge Additional Instructions: Encouraged patient to push fluids, eat foods high in fiber and exercise.Symptoms to return to the Er reviewed with patient. Care Plan Goals: Patient was bladder scanned for 350 ml and her Parks catheter changed by Nursing staff with 250 ml out. Patient reports mild relief. States her abdominal discomfort usually resolves when her Parks is changed but she is still having abdominal discomfort. Abdominal xray revealed moderate fecal burden. Instructions on alleviating constipation included in the AVS and discussed with patient.She verbalized understanding. Follow up with PCP. - My Orders Last 24 Hours: My Active Orders 02/16/19 05:45 CULTURE URINE [RM] Urgent - Assessment/Plan Last 24 Hours: My Active Orders 02/16/19 05:45 CULTURE URINE [RM] Urgent
== END 2019-02-16 07:45 | disposition home or self-care (01) ==
LOC: DL.ED 05:35
DX: T83.018A Breakdown (mechanical) of other urinary catheter, initial encounter (principal); K59.00 Constipation, unspecified; R33.9 Retention of urine, unspecified; Z88.5 Allergy status to narcotic agent; Z87.891 Personal history of nicotine dependence
CPT/HCPCS: 74019; 81001; 87086; 87088; 99283-25

== ENCOUNTER 2019-03-27 14:02 | Emergency (ER) | payer BC, OTHER ==
--- NOTE | 2019-03-27 15:17 | EDM.PDOC ---
ED HPI GENERAL MEDICAL PROBLEM - General Chief Complaint: Genitourinary Problem Stated Complaint: BACK PAIN Time Seen by Provider: 03/27/19 14:50 Source of Information: Reports: Patient History Limitations: Reports: No Limitations - History of Present Illness INITIAL COMMENTS - FREE TEXT/NARRATIVE: This 63 yo female patient reports to the ED with left flank pain that started this morning and has been getting worse. The patient reports she does have a parks catheter in place and has had a history of urinary tract infections. The patient reports she currently feels like she is having another UTI. Duration: Day(s):, Constant, Getting Worse Quality: Reports: Ache, Dull Severity: Moderate Improves with: Reports: None Worsens with: Reports: None Context: Reports: Other - Related Data Allergies Allergy/AdvReac Type Severity Reaction Status Date / Time codeine AdvReac Stomach Verified 03/27/19 14:20 Upset Home Meds: Home Meds Levothyroxine 150 mcg PO ACBREAKFAST 05/25/18 [History] Anastrozole [Arimidex] 1 mg PO DAILY 11/15/18 [History] Past Medical History - Past Health History Medical/Surgical History: Denies Medical/Surgical History Cardiovascular History: Reports: None Respiratory History: Reports: None Gastrointestinal History: Reports: Cholelithiasis Genitourinary History: Reports: Retention, Urinary 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: Reports: Fracture Neurological History: Reports: None Psychiatric History: Reports: Anxiety Endocrine/Metabolic History: Reports: Hypothyroidism Hematologic History: Reports: None Immunologic History: Reports: None Oncologic (Cancer) History: Reports: Bladder Dermatologic History: Reports: None - Infectious Disease History Infectious Disease History: Reports: Chicken Pox, Measles, Mumps - Past Surgical History Head Surgeries/Procedures: Reports: None HEENT Surgical History: Reports: Tonsillectomy GI Surgical History: Reports: Cholecystectomy Female Surgical History: Reports: Hysterectomy Social & Family History - Family History Family Medical History: Noncontributory - Tobacco Use Smoking Status *Q: Never Smoker Second Hand Smoke Exposure: No - Caffeine Use Caffeine Use: Reports: Coffee, Soda - Recreational Drug Use Recreational Drug Use: No - Living Situation & Occupation Living situation: Reports: with Family Occupation: Employed ED ROS GENERAL - Review of Systems Review Of Systems: Comprehensive ROS is negative, except as noted in HPI. ED EXAM, RENAL/ - Physical Exam Exam: See Below Exam Limited By: No Limitations General Appearance: Alert, WD/WN, Moderate Distress Eye Exam: Bilateral Eye: EOMI, Normal Inspection, PERRL Ears: Normal External Exam, Normal Canal, Hearing Grossly Normal, Normal TMs Nose: Normal Inspection, Normal Mucosa, No Blood Throat/Mouth: Normal Inspection, Normal Lips, Normal Teeth, Normal Gums, Normal Oropharynx, Normal Voice, No Airway Compromise Head: Atraumatic, Normocephalic Neck: Normal Inspection, Supple, Non-Tender, Full Range of Motion Respiratory/Chest: No Respiratory Distress, Lungs Clear, Normal Breath Sounds, No Accessory Muscle Use, Chest Non-Tender Cardiovascular: Normal Peripheral Pulses, Regular Rate, Rhythm, No Edema, No Gallop, No JVD, No Murmur, No Rub GI/Abdominal: Normal Bowel Sounds, No Organomegaly, No Distention, No Abnormal Bruit, No Mass, Pelvis Stable, Tender (generalized) (Female) Exam: Deferred Rectal (Female) Exam: Deferred Back Exam: CVA Tenderness (L), CVA Tenderness (R) Extremities: Normal Inspection, Normal Range of Motion, Non-Tender, Normal Capillary Refill, No Pedal Edema Neurological: Alert, Oriented, CN II-XII Intact, Normal Cognition, Normal Gait, Normal Reflexes, No Motor/Sensory Deficits Psychiatric: Normal Affect, Normal Mood Skin Exam: Warm, Dry, Intact, Normal Color, No Rash Lymphatic: No Adenopathy Course - Vital Signs Last Recorded V/S: Last Vital Signs Temp 36.9 C 03/27/19 14:13 Pulse 76 03/27/19 14:13 Resp 20 03/27/19 14:13 BP 160/72 H 03/27/19 14:13 Pulse Ox 99 03/27/19 14:13 - Orders/Labs/Meds Orders: Active Orders 24 hr Category Date Time Status CULTURE URINE [RM] Stat Lab 03/27/19 14:38 Received Labs: Laboratory Tests 03/27/19 12 Range/Units 14:38 14:38 Urine Color Yellow (YELLOW) Urine Appearance Clear (CLEAR) Urine pH 6.0 (5.0-9.0) Ur Specific [place] <= 1.005 (1.005-1.030) Urine Protein Negative (NEGATIVE) Urine Glucose (UA) Negative (NEGATIVE) Urine Ketones Negative (NEGATIVE) Urine Occult Blood Negative (NEGATIVE) Urine Nitrite Negative (NEGATIVE) Urine Bilirubin Negative (NEGATIVE) Urine Urobilinogen 0.2 (0.2-1.0) mg/dL Ur Leukocyte Esterase Large H (NEGATIVE) Urine RBC 5-10 H /HPF Urine WBC >100 H (0-5/HPF) /HPF Ur Epithelial Cells Moderate H (NOT SEEN) /HPF Calcium Oxalate Crystal Few H (NOT SEEN) /HPF Urine Bacteria Moderate H (0-FEW/HPF) /HPF Urine Opiates Screen Negative (NEGATIVE) Ur Oxycodone Screen Negative (NEGATIVE) Urine Methadone Screen Negative (NEGATIVE) Ur Barbiturates Screen Negative (NEGATIVE) U Tricyclic Antidepress Negative (NEGATIVE) Ur Phencyclidine Scrn Negative (NEGATIVE) Ur Amphetamine Screen Negative (NEGATIVE) U Methamphetamines Scrn Negative (NEGATIVE) Urine MDMA Screen Negative (NEGATIVE) U Benzodiazepines Scrn Negative (NEGATIVE) Urine Cocaine Screen Negative (NEGATIVE) U Marijuana (THC) Screen Negative (NEGATIVE) Meds: Medications Discontinued Medications Generic Name Dose Route Start Last Admin Trade Name Freq PRN Reason Stop Dose Admin Cephalexin 500 mg 03/27/19 15:07 Keflex PO 03/27/19 15:08 ONETIME ONE Phenazopyridine HCl 190 mg 03/27/19 15:07 Urinary Pain Relief PO 03/27/19 15:08 ONETIME ONE Departure - Departure Time of Disposition: 15:13 Disposition: Home, Self-Care 01 Condition: Fair Clinical Impression: UTI (urinary tract infection) Qualifiers: Urinary tract infection type: site unspecified Hematuria presence: with hematuria Qualified Code(s): N39.0 - Urinary tract infection, site not specified - Discharge Information *PRESCRIPTION DRUG MONITORING PROGRAM REVIEWED*: Not Applicable *COPY OF PRESCRIPTION DRUG MONITORING REPORT IN PATIENT HONORIO: Not Applicable Instructions: Urinary Tract Infection, Adult, [id number] Care Plan Goals: The patient was advised of the examination and lab results during the visit. The patient was given an oral dose of Keflex and Pyridium while in the ED. The patient was discharged with a script for Keflex (500 mg) #15 to take 1 by mouth 3 times per day for 5 days and Pyridium (200 mg) #6 to take 1 by mouth 3 times per day for 2 days. If the patient has any additional symptoms or concerns, the patient should either return to the emergency department or visit her primary care facility. - My Orders Last 24 Hours: My Active Orders 03/27/19 14:38 CULTURE URINE [RM] Stat - Assessment/Plan Last 24 Hours: My Active Orders 03/27/19 14:38 CULTURE URINE [RM] Stat
[2019-03-27] MEDS: Cephalexin 500 MG Cap PO ONE (15:18)
[2019-03-27] MEDS: Phenazopyridine 95 MG Tab PO ONE (15:18)
[2019-03-27 15:31] VITALS: BP 136/61; PULSE 67
== END 2019-03-27 15:20 | disposition home or self-care (01) ==
LOC: DL.ED 14:02
DX: N39.0 Urinary tract infection, site not specified (principal); R31.9 Hematuria, unspecified; E03.9 Hypothyroidism, unspecified; Z90.49 Acquired absence of other specified parts of digestive tract; Z88.5 Allergy status to narcotic agent; Z79.899 Other long term (current) drug therapy
CPT/HCPCS: 80305; 81001; 87086; 99284; A9270

== ENCOUNTER 2019-04-07 23:41 | Emergency (ER) | payer BC, OTHER ==
[2019-04-08 01:06] VITALS: BP 130/57; PULSE 65
[2019-04-08 02:08] LABS: ANION GAP 12.6; CHLORIDE,CL 105 mmol/L (101-111); SODIUM,NA 138 mmol/L (135-145)
--- NOTE | 2019-04-08 02:40 | EDM.PDOC ---
ED HPI GENERAL MEDICAL PROBLEM - General Chief Complaint: Abdominal Pain Stated Complaint: BAD PAINS IN STOMACH AND CATHETER PAINFUL Time Seen by Provider: 04/08/19 01:15 Source of Information: Reports: Patient, RN, RN Notes Reviewed History Limitations: Reports: No Limitations - History of Present Illness INITIAL COMMENTS - FREE TEXT/NARRATIVE: patient presents to ER with complaint of left upper quadrant pain that she states began at 4:00 this afternoon. Patient has an indwelling catheter, that was change the beginning of March. History of pulmonary nodules/masses, as well as intra-abdominal masses. Patient has been on oral immunotherapy since August , and last week was told to stop taking this oral medication. She will be transitioned to chemotherapy in the future. There had been increase his incisors of tumors on PET scans. Patient states her last bowel movement was this morning, but was very hard. Patient states she has had some difficulty with constipation. Patient states she has been taking some pain medications for the cancer pain, is less mobile at work as she sits at a desk quite a bit. Onset: Today, Gradual Duration: Constant Location: Reports: Abdomen Left Upper Abdomen Pain Score (Numeric/FACES): 10 - Related Data Allergies Allergy/AdvReac Type Severity Reaction Status Date / Time codeine AdvReac Stomach Verified 04/08/19 01:08 Upset Home Meds: Home Meds Levothyroxine 125 mcg PO ACBREAKFAST 05/25/18 [History] Past Medical History - Past Health History Medical/Surgical History: Denies Medical/Surgical History Cardiovascular History: Reports: None Respiratory History: Reports: None Gastrointestinal History: Reports: Cholelithiasis Genitourinary History: Reports: Retention, Urinary, UTI, Recurrent 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 ankle. Neurological History: Reports: None Psychiatric History: Reports: Anxiety Endocrine/Metabolic History: Reports: Hypothyroidism Hematologic History: Reports: Blood Transfusion(s) Immunologic History: Reports: None Oncologic (Cancer) History: Reports: Bladder Dermatologic History: Reports: None - Infectious Disease History Infectious Disease History: Reports: Chicken Pox, Measles, Mumps - Past Surgical History Head Surgeries/Procedures: Reports: None HEENT Surgical History: Reports: Tonsillectomy GI Surgical History: Reports: Appendectomy, Cholecystectomy Female Surgical History: Reports: Hysterectomy Social & Family History - Family History Family Medical History: Noncontributory - Tobacco Use Smoking Status *Q: Never Smoker - Caffeine Use Caffeine Use: Reports: Coffee - Recreational Drug Use Recreational Drug Use: No - Living Situation & Occupation Living situation: Reports: with Family Occupation: Employed ED ROS GENERAL - Review of Systems Review Of Systems: Comprehensive ROS is negative, except as noted in HPI. ED EXAM, GI/ABD - Physical Exam Exam: See Below Exam Limited By: No Limitations General Appearance: Alert, WD/WN, Moderate Distress Eyes: Bilateral: Normal Appearance, EOMI Ears: Normal External Exam, Hearing Grossly Normal Nose: Normal Inspection Throat/Mouth: Normal Inspection, Normal Voice, No Airway Compromise Head: Atraumatic, Normocephalic Neck: Normal Inspection, Supple, Non-Tender, Full Range of Motion Respiratory/Chest: No Respiratory Distress, Decreased Breath Sounds (bases bilaterally) Cardiovascular: Normal Peripheral Pulses, Regular Rate, Rhythm, No Edema, No Gallop, No JVD, No Murmur, No Rub GI/Abdominal Exam: Normal Bowel Sounds, Soft, Tender (left upper quadrant) (Female) Exam: Deferred Rectal (Female) Exam: Deferred Back Exam: Normal Inspection, Full Range of Motion, NT Extremities: Normal Inspection, Normal Range of Motion, Non-Tender, Normal Capillary Refill, No Pedal Edema Neurological: Alert, Oriented, CN II-XII Intact, Normal Cognition, Normal Gait, Normal Reflexes, No Motor/Sensory Deficits Psychiatric: Normal Affect, Normal Mood Skin Exam: Warm, Dry, Intact, Normal Color, No Rash Lymphatic: No Adenopathy Course - Vital Signs Last Recorded V/S: Last Vital Signs Temp 97.5 F 04/08/19 00:59 Pulse 65 04/08/19 00:59 Resp 18 04/08/19 00:59 BP 130/57 L 04/08/19 00:59 Pulse Ox 99 04/08/19 00:59 - Orders/Labs/Meds Labs: Laboratory Tests 04/08/19 04/08/19 Range/Units 01:45 01:45 WBC 11.7 H (5.0-10.0) 10^3/uL RBC 4.10 L (4.2-5.4) 10^6/uL Hgb 11.4 L (12.0-16.0) g/dL Hct 34.9 L (37.0-47.0) % MCV 85.1 (80-100) fL MCH 27.8 (27.0-34.0) pg MCHC 32.7 L (33.0-35.0) g/dL Plt Count 248 (150-450) 10^3/uL Neut % (Auto) 64.9 (42.2-75.2) % Lymph % (Auto) 21.7 (20.5-50.1) % [place] % (Auto) 9.9 H (2-8) % Eos % (Auto) 3.2 H (1.0-3.0) % Baso % (Auto) 0.3 (0.0-1.0) % Sodium 138 (135-145) mmol/L Potassium 3.6 (3.6-5.0) mmol/L Chloride 105 (101-111) mmol/L Carbon Dioxide 24.0 (21.0-31.0) mmol/L Anion Gap 12.6 BUN 14 (7-18) mg/dL Creatinine 0.8 (0.6-1.3) mg/dL Est Cr Clr Drug Dosing 60.54 mL/min Estimated GFR (MDRD) > 60 BUN/Creatinine Ratio 17.50 Glucose 112 H (74-105) mg/dL Calcium 9.0 (8.4-10.2) mg/dl Total Bilirubin 0.8 (0.2-1.0) mg/dL AST 28 (10-42) IU/L ALT 25 (10-60) IU/L Alkaline Phosphatase 74 (42-121) IU/L Total Protein 7.5 (6.7-8.2) g/dl Albumin 3.7 (3.2-5.5) g/dl Globulin 3.8 Albumin/Globulin Ratio 0.97 - Radiology Interpretation Free Text/Narrative:: Abdominal flat and upright xray: FINDINGS: Lower thorax: There is a nodularity seen in the left lower hemithorax the largest measures approximately 2.9 cm craniocaudal dimension. These previously measured up to 2.4 cm. Gastrointestinal tract: Normal. No bowel dilation. Intraperitoneal space: Normal. No free air. Bones/joints: Unremarkable for age. Soft tissues: There is prominent calcification seen in the right flank appearing stable compared with 02/16/2019 measures approximately 2.3 cm in its greatest dimension. IMPRESSION: 1. Stable 2.3 cm calcification in the right flank compatible with a renal calculus. 2. Pulmonary nodularity seen in the left lower lobe corresponding to the CT abnormality seen on 01/19/2019. 3. Otherwise stable appearance of the abdomen compared with a 02/16/2019. Thank you for allowing us to participate in the care of your patient. Dictated and Authenticated by: Josué Tomlin MD 04/08/2019 2:43 AM Central Time ([place] & [place]) See rad report Departure - Departure Time of Disposition: 03:08 Disposition: Home, Self-Care 01 Condition: Fair Clinical Impression: Chronic indwelling [place] catheter, Primary sarcoma of intra-abdominal site, Pulmonary nodule, left Constipation Qualifiers: Constipation type: unspecified constipation type Qualified Code(s): K59.00 - Constipation, unspecified - Discharge Information *PRESCRIPTION DRUG MONITORING PROGRAM REVIEWED*: No *COPY OF PRESCRIPTION DRUG MONITORING REPORT IN PATIENT HONORIO: No Instructions: Constipation, Adult, [id number], Abdominal Pain, Adult, Easy-to -Read Referrals: PCP,None [Primary Care Provider] - Forms: ED Department Discharge Additional Instructions: may use MiraLAX as directed for constipation May use magnesium citrate [id number] as directed for constipation Drink plenty of water follow-up with Dr. Hernandez tomorrow Return to the ER with any worsening of symptoms Sepsis Event Note - Evaluation Sepsis Screening Result: No Definite Risk - Focused Exam Vital Signs: Vital Signs Temp Pulse Resp BP Pulse Ox 04/08/19 00:59 97.5 F 65 18 130/57 L 99 Date Exam was Performed: 04/08/19 Time Exam was Performed: 04:42
== END 2019-04-08 03:16 | disposition home or self-care (01) ==
LOC: DL.ED 23:41
DX: K59.00 Constipation, unspecified (principal); C76.2 Malignant neoplasm of abdomen; E03.9 Hypothyroidism, unspecified; Z96.0 Presence of urogenital implants; Z79.890 Hormone replacement therapy; Z88.5 Allergy status to narcotic agent
CPT/HCPCS: 36415; 74019; 80053; 85025; 99284-25

== ENCOUNTER 2019-08-22 01:15 | Emergency (ER) | payer BC, OTHER ==
[2019-08-22 01:26] VITALS: BP 149/75; PULSE 83
--- NOTE | 2019-08-22 01:41 | EDM.PDOC ---
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 ankle. Neurological History: Reports: None Psychiatric History: Reports: Anxiety Endocrine/Metabolic History: Reports: Hypothyroidism Hematologic History: Reports: Blood Transfusion(s) Immunologic History: Reports: None Oncologic (Cancer) History: Reports: Bladder Dermatologic History: Reports: None - Infectious Disease History Infectious Disease History: Reports: Chicken Pox, Measles, Mumps - Past Surgical History Head Surgeries/Procedures: Reports: None HEENT Surgical History: Reports: Tonsillectomy GI Surgical History: Reports: Appendectomy, Cholecystectomy Female Surgical History: Reports: Hysterectomy Social & Family History - Family History Family Medical History: Noncontributory - Tobacco Use Smoking Status *Q: Unknown Ever Smoked - Caffeine Use Caffeine Use: Reports: Coffee - Recreational Drug Use Recreational Drug Use: No - Living Situation & Occupation Living situation: Reports: with Family Occupation: Employed ED ROS GENERAL - Review of Systems Review Of Systems: Comprehensive ROS is negative, except as noted in HPI. ED EXAM, RENAL/ - Physical Exam Exam: See Below Exam Limited By: No Limitations General Appearance: Alert, WD/WN, Mild Distress, Other (discomfort) Ears: Hearing Grossly Normal Throat/Mouth: Normal Voice, No Airway Compromise Head: Atraumatic Neck: Non-Tender, Full Range of Motion Respiratory/Chest: No Respiratory Distress Cardiovascular: Regular Rate, Rhythm GI/Abdominal: Tender. No: Distended, Guarding, Rigid, Rebound, Other ( suprapubic>) Neurological: Alert, Oriented, Normal Cognition, Normal Gait, No Motor/Sensory Deficits Psychiatric: Flat Affect Skin Exam: Warm, Dry, Normal Color Lymphatic: No Adenopathy Course - Vital Signs Last Recorded V/S: Last Vital Signs Temp 36.5 C 08/22/19 01:23 Pulse 83 08/22/19 01:23 Resp 16 08/22/19 01:23 BP 149/75 H 08/22/19 01:23 Pulse Ox 100 08/22/19 01:23 - Orders/Labs/Meds Orders: Active Orders 24 hr Category Date Time Status CULTURE URINE [RM] Stat Lab 08/22/19 01:40 Received Nitrofurantoin [place]/Macrocryst [Macrobid] Med 08/22/19 02:50 Once 100 mg PO ONETIME ONE Labs: Laboratory Tests 08/22/19 Range/Units 01:40 Urine Color Yellow (YELLOW) Urine Appearance Cloudy (CLEAR) Urine pH 7.0 (5.0-9.0) Ur Specific [place] 1.020 (1.005-1.030) Urine Protein Trace H (NEGATIVE) Urine Glucose (UA) Negative (NEGATIVE) Urine Ketones Negative (NEGATIVE) Urine Occult Blood Small H (NEGATIVE) Urine Nitrite Negative (NEGATIVE) Urine Bilirubin Negative (NEGATIVE) Urine Urobilinogen 0.2 (0.2-1.0) mg/dL Ur Leukocyte Esterase Large H (NEGATIVE) Urine RBC 10-20 H /HPF Urine WBC >100 H (0-5/HPF) /HPF Ur Epithelial Cells Moderate H (NOT SEEN) /HPF Amorphous Sediment Moderate H (NOT SEEN) /HPF Urine Bacteria Many H (0-FEW/HPF) /HPF Urine Mucus Moderate H (NOT SEEN) /LPF Meds: Medications Discontinued Medications Generic Name Dose Route Start Last Admin Trade Name Freq PRN Reason Stop Dose Admin Nitrofurantoin Macrocrystals 100 mg 08/22/19 02:50 Macrobid PO 08/22/19 02:51 ONETIME ONE - Re-Assessments/Exams Free Text/Narrative Re-Assessment/Exam: 08/22/19 02:51 results discussed with pt Departure - Departure Time of Disposition: 02:52 Disposition: Home, Self-Care 01 Condition: Good Clinical Impression: UTI (urinary tract infection) Qualifiers: Urinary tract infection type: acute cystitis Hematuria presence: without hematuria Qualified Code(s): N30.00 - Acute cystitis without hematuria - Discharge Information Forms: ED Department Discharge Additional Instructions: 1) follow up at clinic rx given; macrobid 100mg bid x 20 Sepsis Event Note - Evaluation Sepsis Screening Result: No Definite Risk - Focused Exam Vital Signs: Vital Signs Temp Pulse Resp BP Pulse Ox 08/22/19 01:23 36.5 C 83 16 149/75 H 100 Date Exam was Performed: 08/22/19 Time Exam was Performed: 02:51 - My Orders Last 24 Hours: My Active Orders 08/22/19 01:40 CULTURE URINE [RM] Stat 08/22/19 02:50 Nitrofurantoin [place]/Macrocryst [Macrobid] 100 mg PO ONETIME ONE - Assessment/Plan Last 24 Hours: My Active Orders 08/22/19 01:40 CULTURE URINE [RM] Stat 08/22/19 02:50 Nitrofurantoin [place]/Macrocryst [Macrobid] 100 mg PO ONETIME ONE
[2019-08-22] MEDS ORDERED: Nitrofurantoin Monohydrate/Macrocrystalline 100 MG Cap PO ONE (02:50)
== END 2019-08-22 03:05 | disposition home or self-care (01) ==
LOC: DL.ED 01:15
DX: N30.00 Acute cystitis without hematuria (principal); Z88.5 Allergy status to narcotic agent; E03.9 Hypothyroidism, unspecified; Z79.899 Other long term (current) drug therapy
CPT/HCPCS: 81001; 87086; 87088; 87186; 99284; A9270

== ENCOUNTER 2019-12-01 07:46 | Emergency (ER) | payer BC, OTHER ==
--- NOTE | 2019-12-01 08:08 | EDM.PDOC ---
ED HPI GENERAL MEDICAL PROBLEM - General Chief Complaint: Genitourinary Problem Stated Complaint: CATHADERE IS PLUGGED + TESTED POSITIVE FOR COVID Time Seen by Provider: 12/01/19 08:05 Source of Information: Reports: Patient, Old Records, RN, RN Notes Reviewed History Limitations: Reports: No Limitations - History of Present Illness INITIAL COMMENTS - FREE TEXT/NARRATIVE: Pt presents to ER with c/o that her Peace catheter is plugged again. She usually has her catheter care in clinic but felt she needed help with it before clinic was open today. Pt was COVID positive 19 days ago. Onset: Gradual Duration: Recurring Location: Reports: Other (Peace cath. problem) Severity: Moderate Improves with: Reports: None Worsens with: Reports: None Associated Symptoms: Reports: No Other Symptoms - Related Data Allergies Allergy/AdvReac Type Severity Reaction Status Date / Time codeine AdvReac Stomach Verified 04/08/19 01:08 Upset Home Meds: Home Meds Levothyroxine 125 mcg PO ACBREAKFAST 05/25/18 [History] Past Medical History - Past Health History Medical/Surgical History: Denies Medical/Surgical History Cardiovascular History: Reports: None Respiratory History: Reports: None Gastrointestinal History: Reports: Cholelithiasis Genitourinary History: Reports: Retention, Urinary, UTI, Recurrent Other Genitourinary History: chronic catheter 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 ankle. Neurological History: Reports: None Psychiatric History: Reports: Anxiety Endocrine/Metabolic History: Reports: Hypothyroidism Hematologic History: Reports: Blood Transfusion(s) Immunologic History: Reports: None Oncologic (Cancer) History: Reports: Bladder Dermatologic History: Reports: None - Infectious Disease History Infectious Disease History: Reports: Chicken Pox, Measles, Mumps - Past Surgical History Head Surgeries/Procedures: Reports: None HEENT Surgical History: Reports: Tonsillectomy GI Surgical History: Reports: Appendectomy, Cholecystectomy Female Surgical History: Reports: Hysterectomy Social & Family History - Family History Family Medical History: Noncontributory - Caffeine Use Caffeine Use: Reports: Coffee - Living Situation & Occupation Living situation: Reports: with Family Occupation: Employed ED ROS GENERAL - Review of Systems Review Of Systems: Comprehensive ROS is negative, except as noted in HPI. ED EXAM, RENAL/ - Physical Exam Exam: See Below Exam Limited By: No Limitations General Appearance: Alert, No Apparent Distress Respiratory/Chest: No Respiratory Distress GI/Abdominal: Normal Bowel Sounds, Soft, Non-Tender Neurological: Alert, Oriented, No Motor/Sensory Deficits Psychiatric: Normal Mood Skin Exam: Warm, Dry Course - Orders/Labs/Meds Orders: Active Orders 24 hr Category Date Time Status Insert Peace Catheter [Insert Urinary Catheter] [OM.PC] Care 12/01/19 08:01 Ordered Stat Urinary Catheter Assessment [RC] ASDIRECTED Care 12/01/19 08:02 Active CULTURE URINE [RM] Stat Lab 12/01/19 08:21 Received UA W/MICROSCOPIC [URIN] Stat Lab 12/01/19 08:21 Results Labs: Laboratory Tests 12/01/19 Range/Units 08:21 Urine Color Dark yellow (YELLOW) Urine Appearance Cloudy (CLEAR) Urine pH 7.5 (5.0-9.0) Ur Specific [place] 1.020 (1.005-1.030) Urine Protein 100 H (NEGATIVE) Urine Glucose (UA) Negative (NEGATIVE) Urine Ketones 15 H (NEGATIVE) Urine Occult Blood Large H (NEGATIVE) Urine Nitrite Positive H (NEGATIVE) Urine Bilirubin Small H (NEGATIVE) Urine Urobilinogen 2.0 H (0.2-1.0) mg/dL Ur Leukocyte Esterase Large H (NEGATIVE) Departure - Departure Time of Disposition: 08:45 Disposition: Home, Self-Care 01 Condition: Good Clinical Impression: Urinary catheter dysfunction Qualifiers: Encounter type: initial encounter Qualified Code(s): T83.018A - Breakdown (mechanical) of other urinary catheter, initial encounter UTI (urinary tract infection) Qualifiers: Urinary tract infection type: acute cystitis Hematuria presence: without hematuria Qualified Code(s): N30.00 - Acute cystitis without hematuria - Discharge Information *PRESCRIPTION DRUG MONITORING PROGRAM REVIEWED*: Not Applicable *COPY OF PRESCRIPTION DRUG MONITORING REPORT IN PATIENT HONORIO: Not Applicable Instructions: Indwelling Urinary Catheter Care, Adult, Urinary Tract Infection, Adult, [id number] Forms: ED Department Discharge Additional Instructions: Rx: Cephalexin 500mg Follow up in clinic for urine recheck in 5 to 7 days. - My Orders Last 24 Hours: My Active Orders 12/01/19 08:01 Insert Peace Catheter [Insert Urinary Catheter] [OM.PC] Stat 12/01/19 08:02 Urinary Catheter Assessment [RC] ASDIRECTED 12/01/19 08:21 CULTURE URINE [RM] Stat UA W/MICROSCOPIC [URIN] Stat - Assessment/Plan Last 24 Hours: My Active Orders 12/01/19 08:01 Insert Peace Catheter [Insert Urinary Catheter] [OM.PC] Stat 12/01/19 08:02 Urinary Catheter Assessment [RC] ASDIRECTED 12/01/19 08:21 CULTURE URINE [RM] Stat UA W/MICROSCOPIC [URIN] Stat
[2019-12-01 08:46] VITALS: BP 124/69; PULSE 67
== END 2019-12-01 09:10 | disposition home or self-care (01) ==
LOC: DL.ED 07:46
DX: T83.091A Other mechanical complication of indwelling urethral catheter, initial encounter (principal); N30.00 Acute cystitis without hematuria; E03.9 Hypothyroidism, unspecified; Z88.5 Allergy status to narcotic agent; Z79.899 Other long term (current) drug therapy
CPT/HCPCS: 51702; 81001; 87086; 87088; 87186; 99283; 99283-25

== ENCOUNTER 2020-04-26 14:44 | Observation (INO) | payer BC, OTHER ==
--- NOTE | 2020-04-26 14:49 | EDM.PDOC ---
ED HPI GENERAL MEDICAL PROBLEM - General Chief Complaint: General Stated Complaint: SENT FROM CLINIC Time Seen by Provider: 04/26/20 14:44 Source of Information: Reports: Patient, Old Records, Provider (Dr. Tello), RN, RN Notes Reviewed History Limitations: Reports: No Limitations - History of Present Illness INITIAL COMMENTS - FREE TEXT/NARRATIVE: Pt sent from clinic by Dr. Tello for evaluation of fever, severe anemia, and generalized weakness. Pt has Hx of uterine cancer for which she received chemo tx once per month. She has nephrostomy tube, for which she was in clinic for a dressing change for today. Pt as a venous port for access. She denies cough, abdominal pain, or any other symptoms. Onset: Gradual, Unknown/Unsure Duration: Constant, Getting Worse Location: Reports: Generalized Severity: Severe Improves with: Reports: None Worsens with: Reports: None Associated Symptoms: Reports: No Other Symptoms Right Abdominal Pain Score (Numeric/FACES): 10 - Related Data Allergies Allergy/AdvReac Type Severity Reaction Status Date / Time codeine AdvReac Stomach Verified 04/26/20 15:20 Upset Home Meds: Home Meds Levothyroxine 137 mcg PO ACBREAKFAST 05/25/18 [History] Past Medical History - Past Health History Medical/Surgical History: Denies Medical/Surgical History Cardiovascular History: Reports: None Respiratory History: Reports: None Gastrointestinal History: Reports: Cholelithiasis Genitourinary History: Reports: Retention, Urinary, UTI, Recurrent Other 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 ankle. Neurological History: Reports: None Psychiatric History: Reports: Anxiety Endocrine/Metabolic History: Reports: Hypothyroidism Hematologic History: Reports: Blood Transfusion(s) Immunologic History: Reports: None Oncologic (Cancer) History: Reports: Bladder Dermatologic History: Reports: None - Infectious Disease History Infectious Disease History: Reports: Chicken Pox, Measles, Mumps - Past Surgical History Head Surgeries/Procedures: Reports: None HEENT Surgical History: Reports: Tonsillectomy GI Surgical History: Reports: Appendectomy, Cholecystectomy Female Surgical History: Reports: Hysterectomy Social & Family History - Family History Family Medical History: No Pertinent Family History - Caffeine Use Caffeine Use: Reports: Coffee - Living Situation & Occupation Living situation: Reports: with Family Occupation: Employed ED ROS GENERAL - Review of Systems Review Of Systems: Comprehensive ROS is negative, except as noted in HPI. ED EXAM, GENERAL - Physical Exam Exam: See Below Exam Limited By: No Limitations General Appearance: Alert, WD/WN, No Apparent Distress Eye Exam: Bilateral Eye: Normal Inspection Nose: Normal Inspection, Normal Mucosa, No Blood Throat/Mouth: Normal Inspection, Normal Lips, Normal Teeth, Normal Gums, Normal Oropharynx, Normal Voice, No Airway Compromise Head: Atraumatic, Normocephalic Neck: Normal Inspection, Supple, Non-Tender, Full Range of Motion Respiratory/Chest: No Respiratory Distress, Lungs Clear, Normal Breath Sounds, No Accessory Muscle Use, Chest Non-Tender Cardiovascular: Normal Peripheral Pulses, Regular Rate, Rhythm, No Edema, No Gallop, No JVD, No Murmur, No Rub GI/Abdominal: Normal Bowel Sounds, Soft, Non-Tender, No Organomegaly, No Distention, No Abnormal Bruit, No Mass Back Exam: Other (Nephrostomy tubes). No: CVA Tenderness (L), CVA Tenderness (R) Extremities: Normal Inspection Neurological: Alert, Oriented, No Motor/Sensory Deficits Psychiatric: Normal Affect, Normal Mood Skin Exam: Warm, Dry, Intact, Normal Color, No Rash Course - Vital Signs Last Recorded V/S: Last Vital Signs Temp 99.6 F 04/26/20 16:12 Pulse 88 04/26/20 15:15 Resp 16 04/26/20 15:15 BP 119/67 04/26/20 15:15 Pulse Ox 100 04/26/20 15:15 - Orders/Labs/Meds Orders: Active Orders 24 hr Category Date Time Status Implanted Port Access [RC] ONETIME Care 04/26/20 14:57 Active Verify Patient Consent Obtain [RC] ASDIRECTED Care 04/26/20 14:53 Active CULTURE BLOOD [BC] Stat Lab 04/26/20 14:51 Ordered CULTURE BLOOD [BC] Stat Lab 04/26/20 15:00 Received CULTURE STREP A CONFIRMATION [RM] Stat Lab 04/26/20 15:27 Results CULTURE URINE [RM] Stat Lab 04/26/20 15:51 Received RED BLOOD CELLS LP [BBK] Stat Lab 04/26/20 15:00 Results STREP SCRN A RAPID W CULT CONF [RM] Stat Lab 04/26/20 15:27 Results TYPE AND SCREEN [BBK] Stat Lab 04/26/20 15:00 Results UA W/MICROSCOPIC [URIN] Stat Lab 04/26/20 15:51 Results cefTRIAXone [Rocephin] 2 gm Med 04/26/20 16:24 Ordered Sodium Chloride 0.9% [Normal Saline] 100 ml IV ONETIME Blood Culture x2 Reflex Set [OM.PC] Stat Ot 04/26/20 14:49 Ordered Blood Transfusion Reflex Orders [OM.PC] Routine Oth 04/26/20 14:51 Ordered Isolation [COMM] Routine Ot 04/26/20 14:51 Active Transfuse PRBC [Transfuse Red Blood Cells] [COMM] Oth 04/26/20 15:31 Ordered Routine Transfuse Red Blood Cells [COMM] Stat Ot 04/26/20 14:51 Ordered Labs: Laboratory Tests 04/26/20 04/26/20 04/26/20 Range/Units 15:00 15:00 15:00 WBC 8.3 (5.0-10.0) 10^3/uL RBC 2.12 L (4.2-5.4) 10^6/uL Hgb 6.0 L* D (12.0-16.0) g/dL Hct 19.3 L* (37.0-47.0) % MCV 91.0 D (80-100) fL MCH 28.3 (27.0-34.0) pg MCHC 31.1 L (33.0-35.0) g/dL Plt Count 355 D (150-450) 10^3/uL Neut % (Auto) 65.8 (42.2-75.2) % Lymph % (Auto) 16.2 L (20.5-50.1) % [place] % (Auto) 17.2 H (2-8) % Eos % (Auto) 0.4 L (1.0-3.0) % Baso % (Auto) 0.4 (0.0-1.0) % PT (9.0-12.0) SEC INR (0.9-1.2) APTT (22.0-34.0) SEC Sodium 137 (136-145) mmol/L Potassium 3.8 (3.5-5.1) mmol/L Chloride 101 (98-107) mmol/L Carbon Dioxide 24 (21-32) mmol/L Anion Gap 15.8 H (7-13) mEq/L BUN 14 (7-18) mg/dL Creatinine 0.75 (0.55-1.02) mg/dL Est Cr Clr Drug Dosing 63.72 mL/min Estimated GFR (MDRD) > 60 BUN/Creatinine Ratio 18.7 (No establ ref range) Glucose 94 (74-99) mg/dL Lactic Acid 1.2 (0.4-2.0) mmol/L Calcium 8.5 (8.5-10.1) mg/dL Total Bilirubin 0.4 (0.2-1.0) mg/dL AST 22 (15-37) U/L ALT 13 L (14-59) U/L Alkaline Phosphatase 80 (46-116) U/L C-Reactive Protein 6.8 H (0.0-0.9) mg/dL Total Protein 7.0 (6.4-8.2) g/dL Albumin 2.9 L (3.4-5.0) g/dL Globulin 4.1 Albumin/Globulin Ratio 0.71 Urine Color (YELLOW) Urine Appearance (CLEAR) Urine pH (5.0-9.0) Ur Specific [place] (1.005-1.030) Urine Protein (NEGATIVE) Urine Glucose (UA) (NEGATIVE) Urine Ketones (NEGATIVE) Urine Occult Blood (NEGATIVE) Urine Nitrite (NEGATIVE) Urine Bilirubin (NEGATIVE) Urine Urobilinogen (0.2-1.0) mg/dL Ur Leukocyte Esterase (NEGATIVE) Blood Type Gel Antibody Screen Crossmatch 04/26/20 04/26/20 04/26/20 Range/Units 15:00 15:00 15:51 WBC (5.0-10.0) 10^3/uL RBC (4.2-5.4) 10^6/uL Hgb (12.0-16.0) g/dL Hct (37.0-47.0) % MCV (80-100) fL MCH (27.0-34.0) pg MCHC (33.0-35.0) g/dL Plt Count (150-450) 10^3/uL Neut % (Auto) (42.2-75.2) % Lymph % (Auto) (20.5-50.1) % [place] % (Auto) (2-8) % Eos % (Auto) (1.0-3.0) % Baso % (Auto) (0.0-1.0) % PT 10.6 (9.0-12.0) SEC INR 1.1 (0.9-1.2) APTT 29.0 (22.0-34.0) SEC Sodium (136-145) mmol/L Potassium (3.5-5.1) mmol/L Chloride (98-107) mmol/L Carbon Dioxide (21-32) mmol/L Anion Gap (7-13) mEq/L BUN (7-18) mg/dL Creatinine (0.55-1.02) mg/dL Est Cr Clr Drug Dosing mL/min Estimated GFR (MDRD) BUN/Creatinine Ratio (No establ ref range) Glucose (74-99) mg/dL Lactic Acid (0.4-2.0) mmol/L Calcium (8.5-10.1) mg/dL Total Bilirubin (0.2-1.0) mg/dL AST (15-37) U/L ALT (14-59) U/L Alkaline Phosphatase (46-116) U/L C-Reactive Protein (0.0-0.9) mg/dL Total Protein (6.4-8.2) g/dL Albumin (3.4-5.0) g/dL Globulin Albumin/Globulin Ratio Urine Color Yellow (YELLOW) Urine Appearance Slightly cloudy (CLEAR) Urine pH 8.5 (5.0-9.0) Ur Specific [place] 1.020 (1.005-1.030) Urine Protein >=300 H (NEGATIVE) Urine Glucose (UA) Negative (NEGATIVE) Urine Ketones Negative (NEGATIVE) Urine Occult Blood Large H (NEGATIVE) Urine Nitrite Positive H (NEGATIVE) Urine Bilirubin Negative (NEGATIVE) Urine Urobilinogen >=8.0 H (0.2-1.0) mg/dL Ur Leukocyte Esterase Moderate H (NEGATIVE) Blood Type O POSITIVE Gel Antibody Screen Negative Crossmatch See Detail Meds: Medications Discontinued Medications Generic Name Dose Route Start Last Admin Trade Name Freq PRN Reason Stop Dose Admin Acetaminophen 650 mg 04/26/20 14:51 04/26/20 15:07 Tylenol PO 04/26/20 14:52 650 mg NOW ONE Administration - Radiology Interpretation Free Text/Narrative:: XR Chest: chronic B/L lung masses, increased somewhat compared to prior study per Rad. report. Departure - Departure Time of Disposition: 16:28 (admitted to Dr. Zimmerman) Disposition: Refer to Observation Condition: Good Clinical Impression: Severe anemia Urinary tract infection associated with nephrostomy catheter Qualifiers: Encounter type: initial encounter Qualified Code(s): T83.512A - Infection and inflammatory reaction due to nephrostomy catheter, initial encounter; N39.0 - Urinary tract infection, site not specified - Discharge Information *PRESCRIPTION DRUG MONITORING PROGRAM REVIEWED*: Not Applicable *COPY OF PRESCRIPTION DRUG MONITORING REPORT IN PATIENT HONORIO: Not Applicable Forms: ED Department Discharge Sepsis Event Note (ED) - Focused Exam Vital Signs: Vital Signs Temp Pulse Resp BP Pulse Ox 04/26/20 16:12 99.6 F 04/26/20 15:15 101.1 F H 88 16 119/67 100 - My Orders Last 24 Hours: My Active Orders 04/26/20 14:49 Blood Culture x2 Reflex Set [OM.PC] Stat 04/26/20 14:51 CULTURE BLOOD [BC] Stat Blood Transfusion Reflex Orders [OM.PC] Routine Isolation [COMM] Routine Transfuse Red Blood Cells [COMM] Stat 04/26/20 14:53 Verify Patient Consent Obtain [RC] ASDIRECTED 04/26/20 14:57 Implanted Port Access [RC] ONETIME 04/26/20 15:00 CULTURE BLOOD [BC] Stat RED BLOOD CELLS LP [BBK] Stat TYPE AND SCREEN [BBK] Stat 04/26/20 15:27 CULTURE STREP A CONFIRMATION [RM] Stat STREP SCRN A RAPID W CULT CONF [RM] Stat 04/26/20 15:31 Transfuse PRBC [Transfuse Red Blood Cells] [COMM] Routine 04/26/20 15:51 CULTURE URINE [RM] Stat UA W/MICROSCOPIC [URIN] Stat 04/26/20 16:24 cefTRIAXone [Rocephin] 2 gm Sodium Chloride 0.9% [Normal Saline] 100 ml IV ONETIME - Assessment/Plan Last 24 Hours: My Active Orders 04/26/20 14:49 Blood Culture x2 Reflex Set [OM.PC] Stat 04/26/20 14:51 CULTURE BLOOD [BC] Stat Blood Transfusion Reflex Orders [OM.PC] Routine Isolation [COMM] Routine Transfuse Red Blood Cells [COMM] Stat 04/26/20 14:53 Verify Patient Consent Obtain [RC] ASDIRECTED 04/26/20 14:57 Implanted Port Access [RC] ONETIME 04/26/20 15:00 CULTURE BLOOD [BC] Stat RED BLOOD CELLS LP [BBK] Stat TYPE AND SCREEN [BBK] Stat 04/26/20 15:27 CULTURE STREP A CONFIRMATION [RM] Stat STREP SCRN A RAPID W CULT CONF [RM] Stat 04/26/20 15:31 Transfuse PRBC [Transfuse Red Blood Cells] [COMM] Routine 04/26/20 15:51 CULTURE URINE [RM] Stat UA W/MICROSCOPIC [URIN] Stat 04/26/20 16:24 cefTRIAXone [Rocephin] 2 gm Sodium Chloride 0.9% [Normal Saline] 100 ml IV ONETIME
[2020-04-26] MEDS ORDERED: Acetaminophen 325 MG Tab PO ONE (14:51)
--- NOTE | 2020-04-26 15:29 | CR ---
PROCEDURE INFORMATION: Exam: XR Chest, 1 View Exam date and time: 04/26/2020 2:54 PM Age: 64 years old Clinical indication: Fever; Additional info: Fever of unknown origin in cancer PT TECHNIQUE: Imaging protocol: XR of the chest Views: 1 view. COMPARISON: CT Chest Abdomen Pelvis w Cont 11/07/2019 10:24 AM FINDINGS: Lungs: There is a mass in the left mid to lower lung measuring about 2.8 cm in diameter. This appears to correspond to a mass on the prior CT from November 07, 2019 which measured about 2.1 cm. A mass is suspected in the right infrahilar region measuring about 1.3 cm in diameter. Pleural space: There are no pleural effusions present. There is no evidence of pneumothorax. Heart/Mediastinum: The heart is not enlarged. The heart is not enlarged. Bones/joints: There is a moderate scoliosis. IMPRESSION: Bilateral lung masses which appear to be enlarged since the prior study.
[2020-04-26 15:38] LABS: ANION GAP 15.8 mEq/L (7-13); CHLORIDE,CL 101 mmol/L (98-107); SODIUM,NA 137 mmol/L (136-145)
[2020-04-26] MEDS ORDERED: cefTRIAXone 2 GM in Sodium Chloride 0.9% 100 ML IV ONE (16:24)
[2020-04-26] MEDS ORDERED: Sodium Chloride 0.9% 100 ML ONE (16:36)
[2020-04-26] MEDS ORDERED: Docusate Sodium 100 MG Cap PO PRN (17:55)
[2020-04-26] MEDS ORDERED: Ondansetron 4 MG Tab.DIS PO PRN (17:55)
[2020-04-26] MEDS ORDERED: Morphine 2 MG/ML SYRINGE IVPUSH PRN (17:55)
[2020-04-26] MEDS ORDERED: Sodium Chloride 0.9% 1,000 ML IV SCH (18:00)
--- NOTE | 2020-04-26 20:20 | HP ---
CHIEF COMPLAINT: Generalized weakness. 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 Because of this, she was sent to the emergency room, and in the emergency room, she was noted to have a temperature of 99.6 and hemoglobin of 6. Because of this, she was then admitted for observation and for blood transfusion. The patient denies though any chest pain or headache. She does have pain on her back chronically, but denies any shortness of breath. PAST MEDICAL HISTORY: Remarkable for metastatic leiomyosarcoma of the uterus, history of obstructive uropathy, status post nephrostomy bilaterally. She has hypothyroidism, history of anemia that has required blood transfusion. The patient is undergoing chemotherapy once a month. SOCIAL HISTORY: The patient is a nonsmoker, nonalcohol drinker. HOME MEDICATIONS: Levothyroxine. ALLERGIES: Codeine (stomach upset). FAMILY HISTORY: Noncontributory. REVIEW OF SYSTEMS: As in HPI. The rest of the review of systems is negative. PHYSICAL EXAMINATION: General: The patient looks weak, but alert and oriented, very pleasant. Vital Signs: Blood pressure is 119/67, pulse of 88, respirations of 16, temperature of 99.6, and saturation is 100% on room air. SHEENT: Normocephalic. There are pale palpebral conjunctivae. Sclerae anicteric. Neck: No JVD. No lymphadenopathy. Heart: Regular rate and rhythm. Normal S1 and S2. No gallops. No rubs. Lungs: Have diminished breath sounds on both bases, but no crackles, no wheezing. Abdomen: Soft, nontender, bowel sounds positive. Examination of the flank area is remarkable for bilateral nephrostomy tube. Extremities: Negative for any pedal edema. No calf tenderness. LABORATORY DATA: Lab workup, CBC; WBC is 8.3, hemoglobin is 6, hematocrit of 19.3, and platelets 355. Comp panel remarkable for anion gap of 15.8. The rest of the panel unremarkable. C-reactive protein is 6.8. Lactic acid is 1.2, which is within normal limits. Urinalysis is positive for nitrite with moderate leukocyte esterase and large amount of occult blood. Chest x-ray showed bilateral lung masses, which appears to be enlarged since prior study. ADMITTING DIAGNOSES: 1. Symptomatic anemia. 2. Urinary tract infection. 3. 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 4. Hypothyroidism. TREATMENT PLAN: The patient is going to be admitted to observation. She will be transfused 2 units packed RBC and she will also be empirically started on IV antibiotics for urinary tract infection and urine will be sent for culture. The rest of the management as necessary, and the patient is DNR/DNI. [facility] /[id number]
[2020-04-26] MEDS: Acetaminophen 325 MG Tab PO PRN (21:32)
[2020-04-26] MEDS: oxyCODONE 5 MG Tab PO PRN (23:22)
[2020-04-27] MEDS: Levothyroxine 112 MCG Tab PO SCH (05:49)
[2020-04-27] MEDS: Levothyroxine 25 MCG Tab PO SCH (05:49)
[2020-04-27] MEDS: Acetaminophen 325 MG Tab PO PRN ×2 (06:16→19:52)
[2020-04-27 07:01] LABS: CHLORIDE,CL 105 mmol/L (98-107); SODIUM,NA 139 mmol/L (136-145)
[2020-04-27] MEDS: Enoxaparin 40 MG/0.4 ML Syringe SUBCUT SCH (09:26)
--- NOTE | 2020-04-27 09:44 | PN ---
DATE: 04/27/2020 SUBJECTIVE: The patient received 2 units of packed RBC last night and the patient's hemoglobin and hematocrit this morning is 8.8 and 26.8 respectively. The patient is feeling slightly better this morning and appetite is slowly improving and she still has her aches and pains, but overall she is getting better. She denies though any chest pain or shortness of breath nor any other complaints. OBJECTIVE: Vital Signs: Blood pressure is 109/50, pulse 78, respiration of 18, temperature of 99.9. Heart: Regular rate and rhythm. Normal S1 and S2. No gallops. No rubs. Lungs: Equal bilaterally. No crackles. No wheezing. Abdomen: Soft, nontender. Bowel sounds positive. Extremities: Negative for any pedal edema. No calf tenderness. MEDICATIONS: Reviewed. PLAN: We will continue with her present management and I am going to discontinue the IV fluids as her appetite is slowly improving and we will recheck a CBC in the morning and we will also await the results of the urine culture. If she continues to do well, anticipate discharge in a.m. [facility] /[id number]
[2020-04-27] MEDS ORDERED: Glycerin Adult 2 GM Supp RECTAL PRN (15:27)
[2020-04-27] MEDS ORDERED: cefTRIAXone 1,000 MG in Sodium Chloride 0.9% 50 ML IV SCH (16:00)
[2020-04-27] MEDS: oxyCODONE 5 MG Tab PO PRN (19:54)
[2020-04-28] MEDS: Levothyroxine 112 MCG Tab PO SCH (05:29)
[2020-04-28] MEDS: Levothyroxine 25 MCG Tab PO SCH (05:29)
[2020-04-28 08:19] VITALS: BP 131/59; PULSE 80
--- NOTE | 2020-04-28 09:40 | PN ---
DATE: 04/28/2020 SUBJECTIVE: The patient continues to do well and she is feeling back to her baseline and she is ready to go home. She still has her aches and pains on her legs, but she denies any chest pain or shortness of breath nor any other complaints. LABORATORY WORKUP: This morning. CBC: WBC is 7.7, hemoglobin is 8.8, hematocrit is 27.1, platelets are 259. OBJECTIVE: Vital Signs: Blood pressure is 131/59, pulse of 80, respirations 20, temperature of 98.5, saturation is 100%. Heart: Regular rate and rhythm. Normal S1 and S2. No gallops. No rubs. Lungs: Equal bilaterally. No crackles, no wheezing. Abdomen: Soft, nontender. Extremities: Negative for any pedal edema. No calf tenderness. PLAN: We will discharge the patient home today. Will have her follow up with Dr. Tello in 1 week for recheck CBC and urinalysis. [facility] /[id number]
--- NOTE | 2020-04-28 09:52 | DISCH ---
FINAL DIAGNOSES: 1. Symptomatic anemia. 2. Urinary tract infection. 3. 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 4. Hypothyroidism. BRIEF HISTORY OF PRESENT ILLNESS: The patient is a 64-year-old lady who was admitted with a hemoglobin of 6. PERTINENT LAB, X-RAY, AND OTHER TESTS: On admission, CBC; WBC is 8.3, hemoglobin of 6, hematocrit of 19.3, platelet is 355. Urinalysis is positive for nitrite with moderate leukocyte esterase and large amount of occult blood. HOSPITAL COURSE: The patient was admitted to General Medicine floor. She was empirically started on IV antibiotics, Rocephin for her urinary tract infection, and the patient was also transfused 2 units of packed RBC. The patient did well with the above regimen and the patient's hemoglobin increased to 8.8. The rest of the hospital course was unremarkable and she was subsequently discharged, and condition on discharge was improved. Blood cultures on hospitalization are negative. Influenza and Streptococcus were negative. The patient is going to be continued on Augmentin 875 mg b.i.d. for 5 days for her urinary tract infection and she is going to follow up with Dr. Tello in 1 week and we will also resume her home medication. [facility] /[id number]
[2020-04-28] MEDS: Enoxaparin 40 MG/0.4 ML Syringe SUBCUT SCH (10:21)
== END 2020-04-28 12:00 | disposition home or self-care (01) ==
LOC: DL.ED 14:44 → DL.MS 17:10 → DL.ED 17:24 → DL.MS 17:31 → UNDOADMOB 17:31
PROVIDERS: ADMIT Internal Medicine; ATTEND Internal Medicine
DX: D63.0 Anemia in neoplastic disease (principal); C55 Malignant neoplasm of uterus, part unspecified; C78.02 Secondary malignant neoplasm of left lung; C78.01 Secondary malignant neoplasm of right lung; E03.9 Hypothyroidism, unspecified; N39.0 Urinary tract infection, site not specified; Z88.5 Allergy status to narcotic agent; Z93.6 Other artificial openings of urinary tract status; Z20.828 Contact with and (suspected) exposure to other viral communicable diseases
CPT/HCPCS: 36415; 36430; 71045; 80048; 80053; 81001; 83605; 85025; 85610; 85730; 86140; 86850; 86900; 86901; 86920; 86922; 87040; 87081; 87086; 87430; 87635; 87804; 96365; 99283; 99285; A9270; J0696; J1642; J7030; J7050; P9016; 96376; 99217; 99219; 99225; G0378; U0002

== ENCOUNTER 2020-09-19 17:14 | Emergency (ER) | payer OTHER ==
[2020-09-19] MEDS ORDERED: Magnesium Citrate Solution 296 ML Bottle PO ONE (17:15)
[2020-09-19 17:25] VITALS: BP 137/71; PULSE 92
--- NOTE | 2020-09-19 18:12 | CR ---
PROCEDURE INFORMATION: Exam: XR Abdomen Exam date and time: 09/19/2020 5:38 PM Age: 64 years old Clinical indication: Abdominal pain; Prior surgery; Surgery date: 6+ months TECHNIQUE: Imaging protocol: XR of the abdomen. Views: Frontal supine view of the abdomen. 1 View. COMPARISON: CT Chest Abdomen Pelvis w Cont 05/01/2020 10:28 AM FINDINGS: Tubes, catheters and devices: There are bilateral nephrostomy tubes which appear grossly stable compared with the prior CT. Gastrointestinal tract: The stomach is not distended. No pathologically dilated small bowel loops are seen. There is a large volume of stool throughout the colon. Organs: There is a 19 mm calcification overlying the expected location of the right renal upper pole. Bones/joints: No acute osseous pathology is identified. IMPRESSION: Large volume of stool throughout the colon suggesting constipation.
--- NOTE | 2020-09-19 18:15 | EDM.PDOC ---
<James Field - Last Filed: 09/19/20 18:15> ED HPI GENERAL MEDICAL PROBLEM - General Chief Complaint: General Stated Complaint: CONSTIPATED Time Seen by Provider: 09/19/20 17:45 Source of Information: Reports: Patient History Limitations: Reports: No Limitations - History of Present Illness INITIAL COMMENTS - FREE TEXT/NARRATIVE: This 64 yo female patient reports to the ED with diffuse abdominal pain. The patient reports she has not been able to have a bowel movement since last (09/13/20). The patient reports she feels the need to have a bowel movement, but has not been able to go at this point. Onset: Gradual Duration: Day(s):, Constant, Getting Worse Location: Reports: Abdomen Quality: Reports: Pressure Severity: Moderate Improves with: Reports: None Worsens with: Reports: None Context: Reports: Other - Related Data Allergies Allergy/AdvReac Type Severity Reaction Status Date / Time codeine AdvReac Stomach Verified 09/19/20 17:23 Upset Home Meds: Home Meds Levothyroxine 137 mcg PO ACBREAKFAST 05/25/18 [History] Past Medical History - Past Health History Medical/Surgical History: Denies Medical/Surgical History HEENT History: Reports: None Cardiovascular History: Reports: None Respiratory History: Reports: None Gastrointestinal History: Reports: Cholelithiasis Genitourinary History: Reports: Retention, Urinary, UTI, Recurrent Other Genitourinary History: chronic catheter patient. 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 ankle. Neurological History: Reports: None Psychiatric History: Reports: Anxiety Endocrine/Metabolic History: Reports: Hypothyroidism Hematologic History: Reports: Blood Transfusion(s) Immunologic History: Reports: None Oncologic (Cancer) History: Reports: Bladder, Cervix, Uterine Dermatologic History: Reports: None - Infectious Disease History Infectious Disease History: Reports: Chicken Pox, Measles, Mumps - Past Surgical History Head Surgeries/Procedures: Reports: None HEENT Surgical History: Reports: Tonsillectomy Cardiovascular Surgical History: Reports: None GI Surgical History: Reports: Appendectomy, Cholecystectomy Other GI Surgeries/Procedures: gallstones removed Female Surgical History: Reports: D&C, Hysterectomy, Other (See Below) Other Female Surgeries/Procedures: neprostomy stent Social & Family History - Family History Family Medical History: No Pertinent Family History - Tobacco Use Tobacco Use Status *Q: Unknown Ever Used Tobacco Second Hand Smoke Exposure: No - Caffeine Use Caffeine Use: Reports: Coffee - Recreational Drug Use Recreational Drug Use: No - Living Situation & Occupation Living situation: Reports: with Family Occupation: Employed ED ROS GENERAL - Review of Systems Review Of Systems: Comprehensive ROS is negative, except as noted in HPI. ED EXAM, GENERAL - Physical Exam Exam: See Below Exam Limited By: No Limitations General Appearance: Alert, WD/WN, Moderate Distress Eye Exam: Bilateral Eye: EOMI, Normal Inspection, PERRL Ears: Normal External Exam, Normal Canal, Hearing Grossly Normal, Normal TMs Nose: Normal Inspection, Normal Mucosa, No Blood Throat/Mouth: Normal Inspection, Normal Lips, Normal Teeth, Normal Gums, Normal Oropharynx, Normal Voice, No Airway Compromise Head: Atraumatic, Normocephalic Neck: Normal Inspection, Supple, Non-Tender, Full Range of Motion Respiratory/Chest: No Respiratory Distress, Lungs Clear, Normal Breath Sounds, No Accessory Muscle Use, Chest Non-Tender Cardiovascular: Normal Peripheral Pulses, Regular Rate, Rhythm, No Edema, No Gallop, No JVD, No Murmur, No Rub GI/Abdominal: Normal Bowel Sounds, Soft, No Organomegaly, No Distention, No Abnormal Bruit, No Mass, Tender (diffuse tenderness) (Female) Exam: Deferred Rectal (Female) Exam: Normal Rectal Tone, Fecal Impaction (soft formed stool) Back Exam: Normal Inspection Extremities: Normal Inspection, Normal Range of Motion, Non-Tender, Normal Capillary Refill, No Pedal Edema Neurological: Alert, Oriented, CN II-XII Intact, Normal Cognition, Normal Gait, Normal Reflexes, No Motor/Sensory Deficits Psychiatric: Normal Affect, Normal Mood Skin Exam: Warm, Dry, Intact, Normal Color, No Rash Lymphatic: No Adenopathy Course - Radiology Interpretation Free Text/Narrative:: [facility] Final Radiology Report Call: [phone] assistance Online chat: [email or web address] Name: LEON LOBO Age: 64Years F Date: 09/19/2020 SSN: -- : [id number] Study: CR ABDOMEN 1V FLAT Requesting Physician: James Field Images: 1 Addl Studies: Provided Clinical History: abdominal pain Contrast: Contrast Medium: Contrast Amount: Contrast Method: CONFIDENTIALITY STATEMENT This report is intended only for use by the referring physician, and only in accordance with law. If you received this in error, call [phone]. Page 1 of 1 PROCEDURE INFORMATION: Exam: XR Abdomen Exam date and time: 09/19/2020 5:38 PM Age: 64 years old Clinical indication: Abdominal pain; Prior surgery; Surgery date: 6+ months TECHNIQUE: Imaging protocol: XR of the abdomen. Views: Frontal supine view of the abdomen. 1 View. COMPARISON: CT Chest Abdomen Pelvis w Cont 05/01/2020 10:28 AM FINDINGS: Tubes, catheters and devices: There are bilateral nephrostomy tubes which appear grossly stable compared with the prior CT. Gastrointestinal tract: The stomach is not distended. No pathologically dilated small bowel loops are seen. There is a large volume of stool throughout the colon. Organs: There is a 19 mm calcification overlying the expected location of the right renal upper pole. Bones/joints: No acute osseous pathology is identified. IMPRESSION: Large volume of stool throughout the colon suggesting constipation. Thank you for allowing us to participate in the care of your patient. Dictated and Authenticated by: Shahla Harrell MD 09/19/2020 6:12 PM Central Time ([place] & [place]) Departure - Departure Disposition: Home, Self-Care 01 Clinical Impression: Constipation Qualifiers: Constipation type: unspecified constipation type Qualified Code(s): K59.00 - Constipation, unspecified - Discharge Information Instructions: Constipation, Adult, [id number] Forms: ED Department Discharge Additional Instructions: increase fruit, fiber in diet Continue lactulase three times daily Senokot 3-4 times daily as needed mag citrate one half bottle tonight and 1/2 tomorrow if needed light diet tomorrow advance as tolerated Clinic follow up on Thursday Sepsis Event Note (ED) - Evaluation Sepsis Screening Result: No Definite Risk <Ashley Talbert - Last Filed: 09/19/20 21:22> ED HPI GENERAL MEDICAL PROBLEM Abdominal Pain Score (Numeric/FACES): 4 Course - Vital Signs Last Recorded V/S: Last Vital Signs Temp 97.8 F 09/19/20 17:24 Pulse 92 09/19/20 17:24 Resp 16 09/19/20 17:24 BP 137/71 09/19/20 17:24 Pulse Ox 96 09/19/20 17:24 - Orders/Labs/Meds Orders: Active Orders 24 hr Category Date Time Status Enema [RC] ASDIRECTED Care 09/19/20 18:10 Active Meds: Medications Discontinued Medications Generic Name Dose Route Start Last Admin Trade Name Genet PRN Reason Stop Dose Admin Magnesium Citrate Confirm 09/19/20 21:20 Magnesium Citrate Solution 296 Ml Bottle Administered 09/19/20 21:21 Dose 296 ml .ROUTE .STK-MED ONE - Re-Assessments/Exams Free Text/Narrative Re-Assessment/Exam: 09/19/20 21:21 moderate results. Reports feeling better. States on Lactulose 3 times daily but ran out last Thursday and just got refilled today. Departure - Departure Time of Disposition: 21:03 Condition: Good - Discharge Information *PRESCRIPTION DRUG MONITORING PROGRAM REVIEWED*: No *COPY OF PRESCRIPTION DRUG MONITORING REPORT IN PATIENT HONORIO: No Sepsis Event Note (ED) - Focused Exam Vital Signs: Vital Signs Temp Pulse Resp BP Pulse Ox 09/19/20 17:24 97.8 F 92 16 137/71 96
[2020-09-19] MEDS ORDERED: Magnesium Citrate Solution 296 ML Bottle ONE (21:20)
== END 2020-09-19 21:25 | disposition home or self-care (01) ==
LOC: DL.ED 17:14
DX: K59.00 Constipation, unspecified (principal); E03.9 Hypothyroidism, unspecified; Z88.5 Allergy status to narcotic agent
CPT/HCPCS: 74018; 99283; A9270

== ENCOUNTER 2020-12-20 22:02 | Emergency (ER) | payer OTHER ==
[2020-12-20 22:29] VITALS: BP 146/123; PULSE 86
[2020-12-20] MEDS ORDERED: Benzocaine/Docusate Sodium 20-283 MG/5 ML Enema RECTAL ONE (22:36)
--- NOTE | 2020-12-20 22:43 | EDM.PDOC ---
ED HPI GENERAL MEDICAL PROBLEM - General Chief Complaint: Abdominal Pain Stated Complaint: BLEEDING FROM VAGINA, HAVING SPASMS Time Seen by Provider: 12/20/20 22:30 Source of Information: Reports: Patient History Limitations: Reports: No Limitations - History of Present Illness INITIAL COMMENTS - FREE TEXT/NARRATIVE: Pt is here for abdominal spasms. She notes the spasms have been present and getting worse for the last week. She notes that when this occurs she is usually constipated. She feels like she needs to go and will use a suppository, but will push and only get a little. 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 She was seen in the clinic yesterday and feels like nothing was done. She did not have a pelvic exam done yesterday as the pt declined due to it being to painful to clamp her nephrostomy tubes for the exam. She has been having mild vaginal bleeding for the last several weeks as well. She does not feel like it is coming from the rectum and was told she did not have any hemorrhoids yesterday. She does not have a uterus as it was removed due to cancer. She has had several different medications for her abdominal tumor with control pills and chemotherapy. She denies surgery to remove the tumor. Pt really would just like an enema today. When she has had spasms like this before, that is what has helped. Duration: Week(s): (1) Location: Reports: Abdomen Quality: Reports: Other (cramping) Severity: Moderate - Related Data Allergies Allergy/AdvReac Type Severity Reaction Status Date / Time codeine AdvReac Stomach Verified 09/19/20 17:23 Upset Home Meds: Home Meds Levothyroxine 137 mcg PO ACBREAKFAST 05/25/18 [History] Past Medical History - Past Health History Medical/Surgical History: Denies Medical/Surgical History HEENT History: Reports: None Cardiovascular History: Reports: None Respiratory History: Reports: None Gastrointestinal History: Reports: Cholelithiasis Genitourinary History: Reports: Retention, Urinary, UTI, Recurrent Other Genitourinary History: chronic catheter patient. 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 ankle. Neurological History: Reports: None Psychiatric History: Reports: Anxiety Endocrine/Metabolic History: Reports: Hypothyroidism Hematologic History: Reports: Blood Transfusion(s) Immunologic History: Reports: None Oncologic (Cancer) History: Reports: Bladder, Cervix, Uterine Dermatologic History: Reports: None - Infectious Disease History Infectious Disease History: Reports: Chicken Pox, Measles, Mumps - Past Surgical History Head Surgeries/Procedures: Reports: None HEENT Surgical History: Reports: Tonsillectomy Cardiovascular Surgical History: Reports: None GI Surgical History: Reports: Appendectomy, Cholecystectomy Other GI Surgeries/Procedures: gallstones removed Female Surgical History: Reports: D&C, Hysterectomy, Other (See Below) Other Female Surgeries/Procedures: neprostomy stent Social & Family History - Family History Family Medical History: No Pertinent Family History - Tobacco Use Tobacco Use Status *Q: Former Tobacco User Used Tobacco, but Quit: Yes Month/Year Tobacco Last Used: unsure - Caffeine Use Caffeine Use: Reports: Coffee - Living Situation & Occupation Living situation: Reports: with Family Occupation: Employed ED ROS GENERAL - Review of Systems Review Of Systems: Comprehensive ROS is negative, except as noted in HPI. ED EXAM, GI/ABD - Physical Exam Exam: See Below Exam Limited By: No Limitations General Appearance: Alert, WD/WN, No Apparent Distress Eyes: Bilateral: Normal Appearance Ears: Normal External Exam Throat/Mouth: Normal Voice, No Airway Compromise Head: Atraumatic, Normocephalic Neck: Supple, Non-Tender Respiratory/Chest: No Respiratory Distress, Lungs Clear, Normal Breath Sounds, No Accessory Muscle Use, Chest Non-Tender Cardiovascular: Normal Peripheral Pulses, Regular Rate, Rhythm, No Murmur GI/Abdominal Exam: Normal Bowel Sounds, Distended (mildly), Tender (mildly to palpation lower abdomen). No: Guarding, Rigid, Rebound (Female) Exam: Deferred (declined by pt) Rectal (Female) Exam: Deferred (declined by pt) Back Exam: No: CVA Tenderness (L), CVA Tenderness (R) Extremities: Normal Inspection, No Pedal Edema Neurological: Alert, Oriented, Normal Cognition Psychiatric: Normal Affect, Normal Mood Skin Exam: Warm, Dry, Intact, Normal Color, No Rash Course - Vital Signs Last Recorded V/S: Last Vital Signs Temp 98.5 F 12/20/20 22:25 Pulse 86 12/20/20 22:25 Resp 18 12/20/20 22:25 BP 146/123 H 12/20/20 22:25 Pulse Ox 100 12/20/20 22:25 - Orders/Labs/Meds Meds: Medications Discontinued Medications Generic Name Dose Route Start Last Admin Trade Name Genet PRN Reason Stop Dose Admin Docusate Sodium/Benzocaine 1 each 12/20/20 22:36 12/20/20 22:59 Benzocaine/Docusate Sodium 20-283 Mg/5 Ml Enema RECTAL 12/20/20 22:37 1 each ONETIME ONE Administration - Re-Assessments/Exams Free Text/Narrative Re-Assessment/Exam: Pt is feeling a little better after the disimpaction and fleet enema. She is still having some lower abdominal spasms and burning. She states that she doesn't have urine from her bladder. However, after further questioning, when her nephrostomy tubes aren't draining, then she does leak from her bladder. Pt admits the blood may be from her bladder and the burning does feel like when she used to get bladder infections in the past. She denies any leaking of urine at this time and feels like her nephrostomy tubes are draining appropriately. Advised pelvic exam, pt again declines. Recommend straight cath of the bladder to collect any urine that has accumulated to look for a UTI. Pt is in agreement with this plan. 12/21/20 00:21 Only a small amount collected and noted to be blood tinged, sent for urine culture. Rocephin IM and Rx for cipro 500 mg BID for 7 days given to pt for suspected bladder infection. Advised pt to call/return to the ER if her symptoms worsen or she develops new symptoms. Advised to call her doctors in [place] tomorrow morning. 12/21/20 00:47 Departure - Departure Time of Disposition: 00:49 Disposition: Home, Self-Care 01 Condition: Good Clinical Impression: UTI (urinary tract infection) Qualifiers: Urinary tract infection type: acute cystitis Hematuria presence: without hematuria Qualified Code(s): N30.00 - Acute cystitis without hematuria - Discharge Information *PRESCRIPTION DRUG MONITORING PROGRAM REVIEWED*: Not Applicable *COPY OF PRESCRIPTION DRUG MONITORING REPORT IN PATIENT HONORIO: Not Applicable Instructions: Urinary Tract Infection, Adult, [id number] Forms: ED Department Discharge Additional Instructions: Rocephin IM given in the ER Ciprofloxacin 500 mg BID for 7 days Call/return to the ER if symptoms worsen or new symptoms develop including any fevers or chills Contact your doctors in the morning to discuss what is going on to see if they have any additional recommendations. Sepsis Event Note (ED) - Focused Exam Vital Signs: Vital Signs Temp Pulse Resp BP Pulse Ox 12/20/20 22:25 98.5 F 86 18 146/123 H 100
[2020-12-21] MEDS ORDERED: cefTRIAXone 1 GM, Lidocaine 1% 2.1 ML IM ONE ×2 (00:38)
== END 2020-12-21 01:19 | disposition home or self-care (01) ==
LOC: DL.ED 22:02
DX: N30.00 Acute cystitis without hematuria (principal); E03.9 Hypothyroidism, unspecified; Z88.5 Allergy status to narcotic agent; Z79.899 Other long term (current) drug therapy; Z87.891 Personal history of nicotine dependence
CPT/HCPCS: 87086; 87088; 87186; 96372; 99284; A9270-GY; J0696

== ENCOUNTER 2021-02-24 11:05 | Emergency (ER) | payer MEDICAID, OTHER ==
[2021-02-24 11:27] VITALS: BP 129/79; PULSE 90
[2021-02-24] MEDS ORDERED: Methylnaltrexone 12 MG/0.6 ML SDV SUBCUT ONE (11:52)
[2021-02-24] MEDS ORDERED: Ondansetron 4 MG Tab.DIS PO ONE (11:53)
[2021-02-24] MEDS ORDERED: Bisacodyl 5 MG Tab PO ONE (11:53)
--- NOTE | 2021-02-24 12:42 | CR ---
PROCEDURE INFORMATION: Exam: XR Abdomen Exam date and time: 02/24/2021 11:45 AM Age: 65 years old Clinical indication: Abdominal pain; Additional info: Constipation, bloated/distended TECHNIQUE: Imaging protocol: XR of the abdomen. Views: 2 Views. Upright and supine views. COMPARISON: CT Chest Abdomen Pelvis w Cont 05/01/2020 10:28 AM FINDINGS: Tubes, catheters and devices: Bilateral percutaneous nephrostomy tubes are present. A stone is present within the upper pole of the right kidney measuring to 1.6 cm in size. Gastrointestinal tract: Moderate amount of stool is present within the colon compatible with mild constipation. No obstruction is present. Intraperitoneal space: Normal. No free air. Bones/joints: Unremarkable for age. IMPRESSION: 1. Mild constipation without obstruction. 2. No change in position of bilateral percutaneous nephrostomy tubes. 3. Large stone in the upper pole of the right kidney is unchanged.
[2021-02-24] MEDS ORDERED: Lidocaine 2% Viscous Solution 15 ML Cup ONE (15:45)
--- NOTE | 2021-02-24 16:21 | EDM.PDOC ---
Scribed by Milly Reed 02/24/21 1158 for Robi Gonzáles MD ED HPI GENERAL MEDICAL PROBLEM - General Chief Complaint: Abdominal Pain Stated Complaint: CONSTIPATION Time Seen by Provider: 02/24/21 11:17 Source of Information: Reports: Patient, Old Records, RN, RN Notes Reviewed History Limitations: Reports: No Limitations - History of Present Illness INITIAL COMMENTS - FREE TEXT/NARRATIVE: Patient presents to ED by POV with abdominal pain and constipation. She has not had a normal bowel movement since last Thursday. She states she takes all her prescribed medications, 'but the lactulose is too sweet'. Patient has tumor in abdomen. She states her abdomen is 'fontenot than normal'. She attempted a suppository and she states 'it just came out with no poop on it'. She was seen in [place] Thursday, given Relistor SQ injection and had a small amount of stool. She was started on a Fentanyl patch 12mcg recently and she states she thinks the patch is causing constipation. She rates the discomfort as 8/10. Onset: Gradual Duration: Constant Location: Reports: Abdomen Quality: Reports: Ache, Same as Previous Episode Severity: Severe Improves with: Reports: None Worsens with: Reports: None Associated Symptoms: Reports: No Other Symptoms abdomen Pain Score (Numeric/FACES): 8 - Related Data Allergies Allergy/AdvReac Type Severity Reaction Status Date / Time codeine AdvReac Stomach Verified 02/24/21 11:27 Upset Home Meds: Home Meds Levothyroxine 137 mcg PO ACBREAKFAST 05/25/18 [History] Lactulose [Cephulac] 10 gm PO TID PRN 02/24/21 [History] Sennosides [Senna] 8.6 mg PO BID PRN 02/24/21 [History] fentaNYL [Duragesic] 12 mcg TD Q72H 02/24/21 [History] Past Medical History - Past Health History Medical/Surgical History: Denies Medical/Surgical History HEENT History: Reports: None Cardiovascular History: Reports: None Respiratory History: Reports: None Gastrointestinal History: Reports: Cholelithiasis Genitourinary History: Reports: Retention, Urinary, UTI, Recurrent Other Genitourinary History: 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 ankle. Neurological History: Reports: None Psychiatric History: Reports: Anxiety Endocrine/Metabolic History: Reports: Hypothyroidism Hematologic History: Reports: Blood Transfusion(s) Immunologic History: Reports: None Oncologic (Cancer) History: Reports: Bladder, Cervix, Uterine Dermatologic History: Reports: None - Infectious Disease History Infectious Disease History: Reports: Chicken Pox, Measles, Mumps - Past Surgical History Head Surgeries/Procedures: Reports: None HEENT Surgical History: Reports: Tonsillectomy Cardiovascular Surgical History: Reports: None GI Surgical History: Reports: Appendectomy, Cholecystectomy Other GI Surgeries/Procedures: gallstones removed Female Surgical History: Reports: D&C, Hysterectomy, Other (See Below) Other Female Surgeries/Procedures: neprostomy stent Social & Family History - Family History Family Medical History: No Pertinent Family History - Caffeine Use Caffeine Use: Reports: Coffee - Living Situation & Occupation Living situation: Reports: with Family Occupation: Employed ED ROS GENERAL - Review of Systems Review Of Systems: Comprehensive ROS is negative, except as noted in HPI. ED EXAM, GI/ABD - Physical Exam Exam: See Below Exam Limited By: No Limitations General Appearance: Alert, No Apparent Distress, Thin, Other (Chronically ill appearing) Eyes: Bilateral: Normal Appearance (No scleral icterus) Throat/Mouth: Normal Lips, Normal Voice, No Airway Compromise Head: Atraumatic, Normocephalic Neck: Normal Inspection Respiratory/Chest: No Respiratory Distress, Lungs Clear Cardiovascular: Regular Rate, Rhythm GI/Abdominal Exam: Normal Bowel Sounds, Tender (Mild generalized tenderness), Other (Protruberant abdomen). No: Guarding, Rigid, Rebound Extremities: Normal Inspection Neurological: Alert, Oriented, No Motor/Sensory Deficits Psychiatric: Normal Mood, Flat Affect Skin Exam: Warm, Dry, Intact, Normal Color, No Rash Course - Vital Signs Last Recorded V/S: Last Vital Signs Temp 98.6 F 02/24/21 11:19 Pulse 90 02/24/21 11:19 Resp 20 02/24/21 11:19 BP 129/79 02/24/21 11:19 Pulse Ox 99 02/24/21 11:19 - Orders/Labs/Meds Orders: Active Orders 24 hr Category Date Time Status Enema [RC] ASDIRECTED Care 02/24/21 11:53 Active Meds: Medications Discontinued Medications Generic Name Dose Route Start Last Admin Trade Name Freq PRN Reason Stop Dose Admin Bisacodyl 10 mg 02/24/21 11:53 02/24/21 13:16 Bisacodyl 5 Mg Tab PO 02/24/21 11:54 10 mg ONETIME ONE Administration Lidocaine HCl 15 ml 02/24/21 15:45 02/24/21 15:56 Lidocaine 2% Viscous Solution 15 Ml Cup .XX 02/24/21 15:46 15 ml ONETIME ONE Administration Methylnaltrexone [place] 12 mg 02/24/21 11:52 02/24/21 12:05 Methylnaltrexone 12 Mg/0.6 Ml Sdv SUBCUT 02/24/21 11:53 12 mg ONETIME ONE Administration Ondansetron HCl 4 mg 02/24/21 11:53 02/24/21 12:05 Ondansetron 4 Mg Tab.Dis PO 02/24/21 11:54 4 mg ONETIME ONE Administration - Re-Assessments/Exams Free Text/Narrative Re-Assessment/Exam: 02/24/21 16:16 RN reports pt had large BM following soap suds enema, mineral oil enema, and manual disimpaction with the aid of viscous lidocaine 2%. Departure - Departure Time of Disposition: 16:18 Disposition: Home, Self-Care 01 Condition: Good Clinical Impression: Fecal impaction Constipation Qualifiers: Constipation type: drug induced constipation Qualified Code(s): K59.03 - Drug induced constipation - Discharge Information *PRESCRIPTION DRUG MONITORING PROGRAM REVIEWED*: Not Applicable *COPY OF PRESCRIPTION DRUG MONITORING REPORT IN PATIENT HONORIO: Not Applicable Instructions: Fecal Impaction, Constipation, Adult, [id number] Forms: ED Department Discharge Additional Instructions: Use your Miralax twice daily: one heaping Tablespoonful in a bottle of Vitamin Water. Take the Lactulose as prescribed if you go more than 2 days without a bowel movement. High fiber diet with plenty of fresh fruits and vegetables, prunes, or prune juice. Drink plenty of water. Sepsis Event Note (ED) - Focused Exam Vital Signs: Vital Signs Temp Pulse Resp BP Pulse Ox 02/24/21 11:19 98.6 F 90 20 129/79 99 - My Orders Last 24 Hours: My Active Orders 02/24/21 11:53 Enema [RC] ASDIRECTED - Assessment/Plan Last 24 Hours: My Active Orders 02/24/21 11:53 Enema [RC] ASDIRECTED I have read and agree with the documentation that has been completed regarding this visit. By signing this record, I attest that the documentation was completed in my physical presence and is an accurate record of the encounter.
== END 2021-02-24 16:50 | disposition home or self-care (01) ==
LOC: DL.ED 11:05
DX: K59.03 Drug induced constipation (principal); Z88.5 Allergy status to narcotic agent
CPT/HCPCS: 74019; 96372; 99283; A9270; J2212

== ENCOUNTER 2021-06-07 17:45 | Inpatient (IN) | payer MEDICARE, OTHER ==
[2021-06-07] MEDS ORDERED: Sodium Chloride 0.9% 1,000 ML IV ONE (18:10)
[2021-06-07] MEDS ORDERED: Ondansetron 4 MG/2 ML SDV IV ONE (18:21)
[2021-06-07] MEDS ORDERED: Albuterol/Ipratropium 3.0-0.5 MG/3 ML Neb Soln NEB ONE (18:21)
[2021-06-07] MEDS ORDERED: Iopamidol 755 Mg/ML 100 ML Bottle IVPUSH ONE (18:22)
[2021-06-07] MEDS: Sodium Chloride 0.9% 10 ML Syringe FLUSH PRN ×2 (18:30→21:35)
[2021-06-07] MEDS ORDERED: cefTRIAXone 1 GM in Sodium Chloride 0.9% 50 ML IV ONE (18:41)
[2021-06-07] MEDS ORDERED: Azithromycin 500 MG in Sodium Chloride 0.9% 250 ML IV ONE (18:41)
[2021-06-07 18:50] LABS: CORONAVIRUS COVID-19 NAA NEGATIVE (NEGATIVE); RESPIRATORY SYNCYTIAL VIR NAA NEGATIVE (NEGATIVE)
[2021-06-07 18:51] LABS: ANION GAP 11.7 mEq/L (7-13)
[2021-06-07] MEDS ORDERED: Azithromycin 500 MG Vial ONE (19:00)
[2021-06-07] MEDS ORDERED: Sodium Chloride 0.9% 250 ML ONE (19:01)
[2021-06-07 19:07] LABS: PTT,PARTIAL THROMBOPLSTIN TIME 35.5 SEC (22.0-34.0)
[2021-06-07] MEDS ORDERED: Albumin Human 50 GM in Premix Bag 1 BAG IV ONE (19:25)
[2021-06-07] MEDS ORDERED: Ondansetron 4 MG/2 ML SDV IVPUSH PRN (20:15)
[2021-06-07] MEDS ORDERED: Lactulose Soln 10 GM/15 ML 30 ML UD Cup PO PRN (20:16)
[2021-06-07] MEDS: NS + KCl 20mEq/L 1,000 ML IV SCH (21:34)
[2021-06-07] MEDS ORDERED: Albuterol 6.7 GM Inhaler INH PRN (21:44)
[2021-06-07] MEDS: Mirtazapine 15 MG Tab PO SCH (22:17)
[2021-06-07] MEDS: Apixaban 5 MG Tab PO SCH (22:17)
[2021-06-08] MEDS: oxyCODONE 5 MG Tab PO PRN ×4 (00:59→21:21)
[2021-06-08] MEDS: Levothyroxine 125 MCG Tab PO SCH (06:11)
[2021-06-08 07:51] LABS: ANION GAP 9.1 mEq/L (7-13); CHLORIDE,CL 113 mmol/L (98-107); SODIUM,NA 144 mmol/L (136-145)
[2021-06-08] MEDS ORDERED: Enoxaparin 40 MG/0.4 ML Syringe SUBCUT SCH (09:00)
[2021-06-08] MEDS: Apixaban 5 MG Tab PO SCH ×2 (09:13→20:58)
[2021-06-08] MEDS: NS + KCl 20mEq/L 1,000 ML IV SCH (11:05)
[2021-06-08] MEDS: cefTRIAXone 2 GM in Sodium Chloride 0.9% 100 ML IV SCH (17:59)
[2021-06-08] MEDS: Sodium Chloride 0.9% 10 ML Syringe FLUSH PRN (19:34)
[2021-06-08] MEDS: Azithromycin 500 MG in Sodium Chloride 0.9% 250 ML IV SCH (19:34)
[2021-06-08] MEDS: Mirtazapine 15 MG Tab PO SCH (20:59)
[2021-06-09] MEDS: Acetaminophen 325 MG Tab PO PRN ×2 (00:19→17:59)
[2021-06-09] MEDS: Levothyroxine 125 MCG Tab PO SCH (05:29)
[2021-06-09] MEDS: oxyCODONE 5 MG Tab PO PRN ×2 (05:34→17:59)
[2021-06-09] MEDS: Polyethylene Glycol 3350 Powder 17 GM Packet PO SCH (08:13)
[2021-06-09] MEDS: Apixaban 5 MG Tab PO SCH ×2 (11:22→20:32)
[2021-06-09] MEDS: cefTRIAXone 2 GM in Sodium Chloride 0.9% 100 ML IV SCH (17:52)
[2021-06-09] MEDS: Azithromycin 500 MG in Sodium Chloride 0.9% 250 ML IV SCH (20:31)
[2021-06-09] MEDS: Sodium Chloride 0.9% 10 ML Syringe FLUSH PRN (20:32)
[2021-06-09] MEDS: Mirtazapine 15 MG Tab PO SCH (20:32)
[2021-06-10] MEDS: oxyCODONE 5 MG Tab PO PRN (00:46)
[2021-06-10] MEDS: Acetaminophen 325 MG Tab PO PRN (00:46)
[2021-06-10] MEDS: Levothyroxine 125 MCG Tab PO SCH (05:46)
[2021-06-10] MEDS: Apixaban 5 MG Tab PO SCH ×2 (08:26→22:08)
[2021-06-10] MEDS: Polyethylene Glycol 3350 Powder 17 GM Packet PO SCH (08:27)
[2021-06-10] MEDS: Piperacillin/Tazobactam 3.375 GM in Sodium Chloride 0.9% 100 ML IV SCH ×3 (09:22→20:06)
[2021-06-10] MEDS: Sodium Chloride 0.9% 10 ML Syringe FLUSH PRN ×2 (20:06→20:11)
[2021-06-10] MEDS: Mirtazapine 15 MG Tab PO SCH (22:09)
[2021-06-11] MEDS: Sodium Chloride 0.9% 10 ML Syringe FLUSH PRN ×2 (01:53→08:00)
[2021-06-11] MEDS: Piperacillin/Tazobactam 3.375 GM in Sodium Chloride 0.9% 100 ML IV SCH ×2 (01:54→08:00)
[2021-06-11] MEDS: Levothyroxine 125 MCG Tab PO SCH (05:15)
[2021-06-11] MEDS: Apixaban 5 MG Tab PO SCH (08:01)
[2021-06-11] MEDS: Polyethylene Glycol 3350 Powder 17 GM Packet PO SCH (08:01)
[2021-06-11 08:39] VITALS: BP 98/60; PULSE 103
== END 2021-06-11 09:30 | disposition home or self-care (01) | DRG 180 ==
LOC: DL.ED 17:45 → DL.MS 19:49 → DL.ED 20:09
PROVIDERS: ADMIT Internal Medicine; ATTEND Internal Medicine
DX: R06.03 Acute respiratory distress (principal); C78.02 Secondary malignant neoplasm of left lung; I26.99 Other pulmonary embolism without acute cor pulmonale; J96.01 Acute respiratory failure with hypoxia; J18.9 Pneumonia, unspecified organism; C78.6 Secondary malignant neoplasm of retroperitoneum and peritoneum; C79.72 Secondary malignant neoplasm of left adrenal gland; J98.11 Atelectasis; E46 Unspecified protein-calorie malnutrition; N39.0 Urinary tract infection, site not specified; C49.4 Malignant neoplasm of connective and soft tissue of abdomen; Z66 Do not resuscitate; Z51.5 Encounter for palliative care; Z20.822 Contact with and (suspected) exposure to COVID-19; C78.01 Secondary malignant neoplasm of right lung; E03.9 Hypothyroidism, unspecified; F41.9 Anxiety disorder, unspecified; K59.09 Other constipation; B96.20 Unspecified Escherichia coli [E. coli] as the cause of diseases classified elsewhere; K80.20 Calculus of gallbladder without cholecystitis without obstruction; M19.90 Unspecified osteoarthritis, unspecified site; Z87.891 Personal history of nicotine dependence; Z90.49 Acquired absence of other specified parts of digestive tract; Z88.5 Allergy status to narcotic agent; Z79.890 Hormone replacement therapy; Z90.710 Acquired absence of both cervix and uterus; Z79.899 Other long term (current) drug therapy; Z68.20 Body mass index [BMI] 20.0-20.9, adult; Z93.6 Other artificial openings of urinary tract status; Z85.41 Personal history of malignant neoplasm of cervix uteri; Z85.42 Personal history of malignant neoplasm of other parts of uterus; Z85.51 Personal history of malignant neoplasm of bladder
CPT/HCPCS: 0241U; 36415; 71260; 80048; 80053; 81001; 83605; 83615; 83735; 84100; 85025; 85027; 85610; 85730; 86140; 87040; 87086; 87088; 87186; 94640; 96365; 96375; 99285; A9270-GY; J0456; J0696; J2405; J2543; J3480; J7030; J7050; J7620-GY; P9047; Q9967

== ENCOUNTER 2021-06-18 10:30 | Inpatient (IN) | payer MEDICARE, OTHER, MEDICAID ==
[2021-06-19] MEDS ORDERED: Magnesium Hydroxide 400 MG/5 ML Susp 30 ML Cup PO PRN (09:06)
[2021-06-19] MEDS ORDERED: Ondansetron 4 MG/2 ML SDV IVPUSH PRN (09:06)
[2021-06-19] MEDS ORDERED: Bisacodyl 5 MG Tab PO PRN (09:06)
[2021-06-19] MEDS ORDERED: Ibuprofen 600 MG Tab PO PRN (09:06)
[2021-06-19] MEDS ORDERED: Acetaminophen 325 MG Tab PO PRN (09:06)
[2021-06-19] MEDS ORDERED: Ondansetron 4 MG Tab.DIS PO PRN (09:06)
[2021-06-19] MEDS ORDERED: Morphine 2 MG/ML SYRINGE IVPUSH PRN (09:06)
[2021-06-19] MEDS ORDERED: oxyCODONE 5 MG Tab PO PRN (09:06)
[2021-06-19] MEDS: Ondansetron 4 MG/2 ML SDV IVPUSH SCH ×2 (14:53→18:00)
[2021-06-19] MEDS: Docusate Sodium 100 MG Cap PO SCH ×2 (14:53→20:43)
[2021-06-19] MEDS: Lactulose Soln 10 GM/15 ML 30 ML UD Cup PO PRN (18:12)
[2021-06-19] MEDS: Morphine 2 MG/ML SYRINGE IVPUSH SCH (20:43)
[2021-06-19] MEDS: Sodium Chloride 0.9% 10 ML Syringe FLUSH PRN (20:47)
[2021-06-20] MEDS: Ondansetron 4 MG/2 ML SDV IVPUSH SCH ×3 (05:26→16:27)
[2021-06-20] MEDS: Levothyroxine 125 MCG Tab PO SCH (05:29)
[2021-06-20] MEDS: Docusate Sodium 100 MG Cap PO SCH ×2 (08:43→20:33)
[2021-06-20] MEDS: Sodium Chloride 0.9% 10 ML Syringe FLUSH PRN ×3 (08:44→16:27)
[2021-06-20] MEDS: Morphine 2 MG/ML SYRINGE IVPUSH SCH ×2 (08:45→20:33)
[2021-06-20] MEDS: Lactulose Soln 10 GM/15 ML 30 ML UD Cup PO PRN (20:33)
[2021-06-21] MEDS: Levothyroxine 125 MCG Tab PO SCH (05:44)
[2021-06-21] MEDS: Ondansetron 4 MG/2 ML SDV IVPUSH SCH ×3 (07:30→16:27)
[2021-06-21] MEDS: Sodium Chloride 0.9% 10 ML Syringe FLUSH PRN ×2 (07:33→11:40)
[2021-06-21] MEDS: Lactulose Soln 10 GM/15 ML 30 ML UD Cup PO PRN (08:40)
[2021-06-21] MEDS: Docusate Sodium 100 MG Cap PO SCH ×2 (08:41→20:49)
[2021-06-21] MEDS: Morphine 2 MG/ML SYRINGE IVPUSH SCH ×2 (08:42→20:48)
[2021-06-22] MEDS: Levothyroxine 125 MCG Tab PO SCH (06:58)
[2021-06-22] MEDS: Sodium Chloride 0.9% 10 ML Syringe FLUSH PRN ×3 (07:45→11:41)
[2021-06-22] MEDS: Ondansetron 4 MG/2 ML SDV IVPUSH SCH ×3 (07:45→16:28)
[2021-06-22] MEDS: Docusate Sodium 100 MG Cap PO SCH ×2 (09:40→22:20)
[2021-06-22] MEDS: Morphine 2 MG/ML SYRINGE IVPUSH SCH ×2 (09:40→22:20)
[2021-06-22] MEDS: Lactulose Soln 10 GM/15 ML 30 ML UD Cup PO PRN ×2 (09:44→22:20)
[2021-06-23] MEDS: Levothyroxine 125 MCG Tab PO SCH (05:05)
[2021-06-23] MEDS ORDERED: Ondansetron 4 MG/2 ML SDV IVPUSH SCH (07:30)
[2021-06-23] MEDS: Morphine 2 MG/ML SYRINGE IVPUSH SCH ×3 (09:30→22:03)
[2021-06-23] MEDS: Docusate Sodium 100 MG Cap PO SCH ×2 (09:30→21:59)
[2021-06-23] MEDS ORDERED: Morphine 2 MG/ML SYRINGE IVPUSH PRN (10:05)
[2021-06-23] MEDS ORDERED: Bisacodyl 10 MG Supp RECTAL PRN (10:09)
[2021-06-23] MEDS ORDERED: Metoclopramide 10 MG/2 ML SDV IVPUSH PRN (10:12)
[2021-06-23] MEDS: Ondansetron 4 MG/2 ML SDV IVPUSH SCH ×3 (11:57→21:59)
[2021-06-23] MEDS ORDERED: Metoclopramide 10 MG/2 ML SDV IVPUSH SCH (14:00)
[2021-06-24] MEDS: Levothyroxine 125 MCG Tab PO SCH (06:12)
[2021-06-24] MEDS: Ondansetron 4 MG/2 ML SDV IVPUSH SCH ×4 (09:04→21:39)
[2021-06-24] MEDS: Morphine 2 MG/ML SYRINGE IVPUSH SCH ×3 (09:04→23:02)
[2021-06-24] MEDS: Docusate Sodium 100 MG Cap PO SCH ×2 (09:05→21:35)
[2021-06-24] MEDS ORDERED: Glycerin Adult 2 GM Supp RECTAL ONE ×2 (13:05→16:05)
[2021-06-24] MEDS: Sodium Chloride 0.9% 10 ML Syringe FLUSH PRN ×2 (16:36→21:35)
[2021-06-24] MEDS ORDERED: HYDROmorphone 0.5 MG/0.5 ML Syringe IVPUSH ONE (21:00)
[2021-06-25] MEDS: Levothyroxine 125 MCG Tab PO SCH (06:59)
[2021-06-25] MEDS: Ondansetron 4 MG/2 ML SDV IVPUSH SCH ×4 (08:11→22:24)
[2021-06-25] MEDS: Morphine 2 MG/ML SYRINGE IVPUSH SCH ×3 (08:16→22:29)
[2021-06-25] MEDS: Docusate Sodium 100 MG Cap PO SCH ×2 (08:21→22:22)
[2021-06-25] MEDS ORDERED: Calcium Carbonate 500 MG Tab.Chew PO PRN (10:50)
[2021-06-25] MEDS ORDERED: Magnesium Citrate Solution 296 ML Bottle PO PRN (10:51)
[2021-06-25] MEDS: Sodium Chloride 0.9% 10 ML Syringe FLUSH PRN (22:22)
[2021-06-26] MEDS: Levothyroxine 125 MCG Tab PO SCH (05:43)
[2021-06-26] MEDS: Sodium Chloride 0.9% 10 ML Syringe FLUSH PRN ×4 (08:27→16:41)
[2021-06-26] MEDS: Ondansetron 4 MG/2 ML SDV IVPUSH SCH ×4 (08:28→23:35)
[2021-06-26] MEDS: Morphine 2 MG/ML SYRINGE IVPUSH SCH ×3 (08:33→23:34)
[2021-06-26] MEDS: Docusate Sodium 100 MG Cap PO SCH ×2 (08:36→23:34)
[2021-06-26] MEDS: Lactulose Soln 10 GM/15 ML 30 ML UD Cup PO PRN (09:52)
[2021-06-27] MEDS: Levothyroxine 125 MCG Tab PO SCH (06:23)
[2021-06-27] MEDS: Sodium Chloride 0.9% 10 ML Syringe FLUSH PRN (09:39)
[2021-06-27] MEDS: Docusate Sodium 100 MG Cap PO SCH ×2 (09:40→21:49)
[2021-06-27] MEDS: Morphine 2 MG/ML SYRINGE IVPUSH SCH ×3 (09:40→21:49)
[2021-06-27] MEDS: Ondansetron 4 MG/2 ML SDV IVPUSH SCH ×4 (09:40→21:50)
[2021-06-28] MEDS: Levothyroxine 125 MCG Tab PO SCH (08:04)
[2021-06-28] MEDS: Morphine 2 MG/ML SYRINGE IVPUSH SCH ×3 (08:54→22:24)
[2021-06-28] MEDS: Ondansetron 4 MG/2 ML SDV IVPUSH SCH ×4 (08:58→21:50)
[2021-06-28] MEDS: Docusate Sodium 100 MG Cap PO SCH ×2 (08:58→22:23)
[2021-06-29] MEDS: Levothyroxine 125 MCG Tab PO SCH (06:20)
[2021-06-29] MEDS: Lactulose Soln 10 GM/15 ML 30 ML UD Cup PO PRN (09:04)
[2021-06-29] MEDS: Docusate Sodium 100 MG Cap PO SCH ×3 (09:04→22:56)
[2021-06-29] MEDS: Morphine 2 MG/ML SYRINGE IVPUSH SCH ×3 (09:05→22:46)
[2021-06-29] MEDS: Ondansetron 4 MG/2 ML SDV IVPUSH SCH ×4 (09:05→22:44)
[2021-06-29] MEDS: Sodium Chloride 0.9% 10 ML Syringe FLUSH PRN ×2 (09:06→17:04)
[2021-06-30] MEDS: Sodium Chloride 0.9% 10 ML Syringe FLUSH PRN ×3 (08:27→16:34)
[2021-06-30] MEDS: Ondansetron 4 MG/2 ML SDV IVPUSH SCH ×4 (08:28→21:57)
[2021-06-30] MEDS: Morphine 2 MG/ML SYRINGE IVPUSH SCH ×3 (08:31→21:57)
[2021-06-30] MEDS: Docusate Sodium 100 MG Cap PO SCH ×2 (08:33→20:46)
[2021-06-30] MEDS: Levothyroxine 125 MCG Tab PO SCH (08:34)
[2021-07-01] MEDS: Levothyroxine 125 MCG Tab PO SCH (05:58)
[2021-07-01] MEDS: Morphine 2 MG/ML SYRINGE IVPUSH SCH ×3 (08:21→21:42)
[2021-07-01] MEDS: Ondansetron 4 MG/2 ML SDV IVPUSH SCH ×4 (08:22→21:42)
[2021-07-01] MEDS: Docusate Sodium 100 MG Cap PO SCH ×2 (09:00→22:50)
[2021-07-02] MEDS: Levothyroxine 125 MCG Tab PO SCH (05:14)
[2021-07-02 07:59] VITALS: BP 92/57; PULSE 105
[2021-07-02] MEDS: Ondansetron 4 MG/2 ML SDV IVPUSH SCH ×3 (08:06→18:05)
[2021-07-02] MEDS: Morphine 2 MG/ML SYRINGE IVPUSH SCH ×2 (08:07→18:04)
[2021-07-02] MEDS: Docusate Sodium 100 MG Cap PO SCH (15:28)
== END 2021-07-02 10:15 | DRG 951 ==
LOC: DL.MS 06-19 13:32
PROVIDERS: ADMIT Family Medicine; ATTEND Family Medicine
DX: Z51.5 Encounter for palliative care (principal); R64 Cachexia; Z68.1 Body mass index [BMI] 19.9 or less, adult; C78.02 Secondary malignant neoplasm of left lung; C78.01 Secondary malignant neoplasm of right lung; C78.6 Secondary malignant neoplasm of retroperitoneum and peritoneum; C79.72 Secondary malignant neoplasm of left adrenal gland; C79.51 Secondary malignant neoplasm of bone; Z66 Do not resuscitate; K59.09 Other constipation; R11.0 Nausea; R33.9 Retention of urine, unspecified; Z96.0 Presence of urogenital implants; M19.90 Unspecified osteoarthritis, unspecified site; F41.9 Anxiety disorder, unspecified; F32.9 Major depressive disorder, single episode, unspecified; Z86.16 Personal history of COVID-19; Z86.19 Personal history of other infectious and parasitic diseases; Z90.89 Acquired absence of other organs; Z88.5 Allergy status to narcotic agent; Z79.890 Hormone replacement therapy; Z79.01 Long term (current) use of anticoagulants; Z86.711 Personal history of pulmonary embolism; Z87.440 Personal history of urinary (tract) infections; Z93.6 Other artificial openings of urinary tract status; Z90.49 Acquired absence of other specified parts of digestive tract; Z90.710 Acquired absence of both cervix and uterus; Z87.891 Personal history of nicotine dependence; Z85.118 Personal history of other malignant neoplasm of bronchus and lung; Z20.822 Contact with and (suspected) exposure to COVID-19
CPT/HCPCS: 51798; 82947; A9270-GY; J1170; J2270; J2405; U0002